=== PATIENT | female | born 1945 | race Caucasian/White ===

== ENCOUNTER 2019-08-02 11:22 | Outpatient (CLI) | payer MEDICARE, OTHER, SELFPAY ==
--- NOTE | 2019-08-02 13:54 | MM_ITS ---
WS: [id number] DIAGNOSTIC RIGHT DIGITAL MAMMOGRAM WITH CAD HISTORY: HX OF BREAST CA;LT MASTECTOMY COMPARISON: 07/05/2018, 06/16/2018 and 05/28/2017 Technique: CC, MLO and ML views. Breast composition: There are scattered areas of fibroglandular density. Benign rodlike calcificatio ns. No change in the fibroglandular pattern. MM/[place] [id number] IMPRESSION: BI-RADS: 2-Benign FOLLOW UP: 1 Year Follow-up
== END 2019-08-02 11:23 | disposition home or self-care (01) ==
PROVIDERS: Family Provider Internal Medicine; PCP Internal Medicine; Visit Provider Internal Medicine
DX: Z85.3 Personal history of malignant neoplasm of breast (principal); Z90.12 Acquired absence of left breast and nipple
CPT/HCPCS: 77065

== ENCOUNTER 2020-10-14 10:47 | Outpatient (CLI) | payer MEDICARE, OTHER, SELFPAY ==
--- NOTE | 2020-10-14 10:51 | MM_ITS ---
WS: [id number] DIAGNOSTIC RIGHT DIGITAL MAMMOGRAM WITH CAD HISTORY: HX OF BREAST CA;LT MASTECTOMY COMPARISON: 08/02/2019, 07/05/2018 and 05/28/2017 Technique: CC, MLO and ML views. Breast composition: There are scattered areas of fibroglandular density. Asymmetry central to the RI GHT nipple posteriorly measures 8 mm. This nodule has slightly increased in size since 08/02/2019. At that time we could find no corresponding abnormality. This may be posterior and inferior to the nippl e. This needs to be further evaluated. Benign rodlike calcifications are unchanged. MM/[place] [id number] IMPRESSION: BI-RADS: 0-Incomplete: Need additional imaging evaluation FOLLOW UP: Need Additional Imaging Slight increase in size of the nodule central to the RIGHT nipple since 08/02/19 20.
== END 2020-10-14 10:48 | disposition home or self-care (01) ==
LOC: RADSHAW 10:50
PROVIDERS: PCP Internal Medicine; Visit Provider Internal Medicine
DX: Z85.3 Personal history of malignant neoplasm of breast (principal); Z90.12 Acquired absence of left breast and nipple; N63.41 Unspecified lump in right breast, subareolar
CPT/HCPCS: 77065

== ENCOUNTER 2020-11-22 13:12 | Outpatient (CLI) | payer MEDICARE, OTHER, SELFPAY ==
--- NOTE | 2020-11-22 13:18 | US_ITS ---
WS: [id number] ADDITIONAL VIEWS RIGHT BREAST RIGHT BREAST ULTRASOUND, LIMITED HISTORY: INCONCLUSIVE MAMMO COMPARISON: 10/14/2020, 08/02/2019 and 07/05/2018 Compression views right CC and MLO projection. Asymmetry persists central to the RIGHT nipple measuring 7.5 mm. Nodule is posterior and just beneath the nipple line on the MLO projection. RIGHT breast ultrasound, limited. No abnormality is noted by ultrasound in the posterior RIGHT breast . US/US breast RT limited* [id number] IMPRESSION: BI-RADS: 3-Probably Benign FOLLOW-UP: 6 Month Follow-up Recommend diagnostic RIGHT mammogram follow-up in 6 months.
== END 2020-11-22 13:13 | disposition home or self-care (01) ==
LOC: RADSHAW 13:13
PROVIDERS: PCP Internal Medicine; Visit Provider Internal Medicine
DX: R92.2 Inconclusive mammogram (principal); N64.89 Other specified disorders of breast
CPT/HCPCS: 76642; 77065

== ENCOUNTER 2021-05-29 07:54 | Inpatient (IN) | payer MEDICARE, OTHER, SELFPAY ==
[2021-05-29 08:19] VITALS: BP 214/107; PULSE 119; RESP 28; TEMP 36.8; O2SAT 95; BMI 22.6
--- NOTE | 2021-05-29 08:26 | XR_ITS ---
WS: [id number] BILATERAL RIBS, MULTIPLE VIEWS WITH PA CHEST HISTORY: fall COMPARISON: None available. Lungs and mediastinum: Soft tissue 12 mm nodule is slightly lobulated in the central RIGHT lung. No a dditional nodules or pneumonia. No pneumothorax. No pulmonary contusion. Ribs: No rib fractures or bone destruction identified. XR/XR ribs BI mn 4V w CXR1V [id number] IMPRESSION: 1. No rib fractures or pneumothorax identified. 2. 12 mm soft tissue nodule central RIGHT lung. Neoplasm is not excluded. [facility] mmend follow-up chest CT with IV contrast. Chest CT can be performed on a nonur gent basis.
--- NOTE | 2021-05-29 08:28 | CT_ITS ---
WS: [id number] CT HEAD NONCONTRAST HISTORY: fall TECHNIQUE: Contiguous axial imaging performed through the brain in 2.5 mm imaging. Bone and soft tiss ue windows. Sagittal and coronal reformats reviewed. All CT scans at [facility] use at least one of these dose optimization techniques: automated exposure control; mA and/or kV adjustment per pa tient size (includes targeted exams where dose is matched to clinical indication); or iterative recon struction. DLP: 812.9 mGy.cm COMPARISON: None available. No acute intracranial hemorrhage, midline shift or mass effect. Mild atrophy and chronic microvascular ischemic disease. Infarcts in the RIGHT basal ganglia and RIGH T caudate head are chronic. Ventricles: Normal size with no hydrocephalus. Paranasal sinuses: As visualized are clear. Mastoid air cells: Well pneumatized. Calvarium and scalp: Skull is intact with no soft tissue edema or swelling. CT/CT head wo con* [id number] IMPRESSION: 1. No acute intracranial hemorrhage or edema. 2. Mild atrophy and remote lacunar infarcts in the RIGHT basal ganglia and cau date head.
--- NOTE | 2021-05-29 08:29 | ECG_ITS ---
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 Measurements Intervals [place] Rate: 103 P: 71 ME: 171 QRS: 35 QRSD: 93 T: 41 QT: 326 QTc: 428 Interpretive Statements SINUS TACHYCARDIA POSSIBLE LEFT ATRIAL ENLARGEMENT [-0.1mV P-WAVE IN V1/V2] ABNORMAL RHYTHM ECG Compared to ECG 05/29/2021 13:19:21 T-wave abnormality no longer present Electronically Signed On 05-29-2021 22:45:53 [employer] by Shira Shepard M.D. [email or web address] [id number]
--- NOTE | 2021-05-29 08:30 | ED_ITS ---
HPI - Allergic Reaction General: Chief complaint: Allergic Reaction Stated complaint: Fall, Swollen tongue Wednesday, new meds Time Seen by Provider: 05/29/21 08:20 History of Present Illness: HPI narrative: 75-year-old female with history of hypertension on lisinopril presents due to left chest wall pain and tongue swelling. States this started Wednesday. States she was seen by PCP Wednesday and was started on doxycycline prednisone Mucinex. States that following that she had a fall where she hit the left side of her chest and has had pain in that area since. Does report head trauma but no headache. Denies any neck pain. Denies any other focal pain. Denies numbness weakness or tingling. States that she has had tongue swelling since Wednesday and it is not significantly changing. Denies any rash or GI upset. Denies any syncopal episodes. States fall was mechanical and did not have a prodrome. States chest pain is achy and worse with palpation. It is not exertional or pleuritic. Does not radiate to the back. Denies lower extremity pain or swelling. Review of Systems Narrative: - CONSTITUTIONAL: Denies weight loss, fever and chills. - HEENT: Denies changes in vision and hearing. Reports tongue swelling. - RESPIRATORY: Denies SOB and cough. - CV: As above - GI: Denies abdominal pain, nausea, vomiting and diarrhea. - : Denies dysuria and urinary frequency. - MSK: Denies myalgia and joint pain. - SKIN: Denies rash and pruritus. - NEUROLOGICAL: Denies headache, weakness, numbness and syncope. - PSYCHIATRIC: Denies suicidal ideation Physical Exam Narrative: EXAM NARRATIVE: - GENERAL: Alert and oriented x 3. No acute distress. Well-nourished. - EYES: EOMI. Anicteric. - HENT: Atraumatic, no C-spine tenderness. Moist mucous membranes. No scleral icterus. No cervical lymphadenopathy. Minor tongue swelling but no muffled voice or stridor. No soft tissue swelling of the lips. No wheezing. - LUNGS: Clear to auscultation bilaterally. No accessory muscle use. Equal lung sounds bilaterally. No respiratory distress. - CARDIOVASCULAR: Regular tachycardia. No murmur. No JVD. Tenderness to palpation to left lateral chest wall. - ABDOMEN: Soft, non-tender and non-distended. Negative CVA tenderness bilaterally, no rebound or guarding, negative Taveras sign. No palpable masses. - EXTREMITIES: No edema. Non-tender. - SKIN: No rashes or lesions. Warm. - NEUROLOGIC: No meningismus or focal neurological deficits. CN II-XII grossly intact. - PSYCHIATRIC: Cooperative. Appropriate mood and affect. Course Vital Signs: Vital signs: Vital Signs Temperature 98.3 F 05/29/21 08:19 Pulse Rate 122 H 05/29/21 09:52 Respiratory Rate 28 H 05/29/21 08:19 Blood Pressure 174/82 05/29/21 09:52 Pulse Oximetry 95 05/29/21 09:52 MDM - Allergic Reaction MDM Narrative: Medical decision making narrative: 75-year-old female presents due to left chest wall pain. States she had a mechanical fall did not syncopized. Reports that she only had pain after hitting the left chest did not have any pain prior to the fall or is the cause of the fall. EKG and troponin do not reveal any sign of acute ischemia or acute abnormality. There is sinus tachycardia but she is not short of breath. Initial high-sensitivity troponin very mildly elevated to the mid 20s but repeat is not significantly changing. Does have KAIA to 1.4. In addition patient also complains of minor tongue swelling. She is on lisinopril. There is no stridor or signs of airway compromise but not believe intubation is required at this time. Prednisone and Benadryl provided. However I do believe she requires a period of observation due to concern for progression of angioedema. However given that symptoms have been present since Wednesday probability of rapid progression significantly lower at this point but lisinopril should be stopped. In addition patient has white count elevation to 17 but no focal infectious signs. She is also been on steroids. X-ray does not reveal pneumothorax or consolidation but does reveal a pulmonary mass for which CT follow-up may be required. Remainder of lab work and imaging reviewed. Discussed with hospitalist and they agreed patient would benefit from admission. Patient admitted in stable condition. Further evaluation management per hospitalist team. Lab Data: Labs: Lab Results 05/29/21 05/29/21 05/29/21 09:05 09:05 09:05 WBC 17.5 10^3/uL H 10 ^3/uL (4.0-10.0) RBC 4.87 10^6/uL 10^6 /uL (4.1-5.3) Hgb 14.9 g/dL g/dL (11.5-15.3) Hct 43.8 % % (37.0-47.0) MCV 89.9 fl fl (81-99) MCH 30.6 pg pg (28.0-34.0) MCHC 34.0 g/dL g/dL (30.0-36.0) RDW 12.4 % % (12.1-15.1) Plt Count 306 10^3/cmm 10^3 /cmm (130-400) MPV 8.8 fL fL (7.4-10.4) Neut % (Auto) 85.7 % % Lymph % (Auto) 5.4 % % Garden % (Auto) 7.5 % % Eos % (Auto) 0.1 % % Baso % (Auto) 0.2 % % Neut # (Auto) 15.03 10^3/uL H 1 0^3/uL (1.8-7.7) Lymph # (Auto) 1.0 10^3/uL 10^3/ uL (0.8-4.8) Garden # (Auto) 1.3 10^3/uL H 10^ 3/uL (0.2-0.9) Eos # (Auto) 0.0 10^3/uL 10^3/ uL (0.0-0.8) Baso # (Auto) 0.0 10^3/uL 10^3/ uL (0.0-0.1) Nucleated RBC % (a uto) 0 % % Nucleated RBCs # 0.0 /100WBC /100W BC PT 13.50 SECONDS SEC ONDS (12.1-14.9) INR 1.00 (0.8-1.2) APTT 33.2 SECONDS SECO NDS (23.9-36.7) Sodium 132 mmol/L L mmol /L (136-145) Potassium 4.7 mmol/L mmol/L (3.5-5.1) Chloride 94 mmol/L L mmol/ L (98-107) Carbon Dioxide 23 mmol/L mmol/L (22-29) Anion Gap 19.7 H (5-19) BUN 36 mg/dL H mg/dL (8-23) Creatinine 1.4 mg/dL H mg/dL (0.5-0.9) GFR Calculation Not Reportable Glucose 184 mg/dL H mg/dL (65-115) Calculated Osmolal ity 287 mOsm/kg mOsm/ kg (285-295) Calcium 10.1 mg/dL mg/dL (8.5-10.5) Total Bilirubin 0.3 mg/dL mg/dL (0.15-1.2) AST 19 U/L U/L (0-32) ALT 21 U/L U/L (0-33) Alkaline Phosphata se 103 IU/L IU/L (35-105) Troponin T Baselin e Troponin T 120 Min francisco javier Delta Troponin T NT-Pro-B Natriuret Pep 683 pg/mL H pg/mL (0-125) Total Protein 8.0 g/dL g/dL (6.6-8.7) Albumin 4.7 g/dL g/dL (3.5-5.2) Globulin 3.3 g/dL g/dL (1.3-4.6) Lipase 108 U/L H U/L (13-60) Urine Color Urine Appearance Urine pH Ur Specific Gravit y Urine Protein Urine Glucose (UA) Urine Ketones Urine Blood Urine Nitrate Urine Bilirubin Urine Urobilinogen Ur Leukocyte Dolly ase Urine RBC Urine WBC Ur Squamous Epith Cells Amorphous Sediment Urine Bacteria SARS-CoV-2 Ag (Rap id) 05/29/21 05/29/21 05/29/21 09:05 09:20 09:20 WBC RBC Hgb Hct MCV MCH MCHC RDW Plt Count MPV Neut % (Auto) Lymph % (Auto) Garden % (Auto) Eos % (Auto) Baso % (Auto) Neut # (Auto) Lymph # (Auto) Garden # (Auto) Eos # (Auto) Baso # (Auto) Nucleated RBC % (a uto) Nucleated RBCs # PT INR APTT Sodium Potassium Chloride Carbon Dioxide Anion Gap BUN Creatinine GFR Calculation Glucose Calculated Osmolal ity Calcium Total Bilirubin AST ALT Alkaline Phosphata se Troponin T Baselin e 25 ng/L H ng/L (0-10) Troponin T 120 Min francisco javier Delta Troponin T NT-Pro-B Natriuret Pep Total Protein Albumin Globulin Lipase Urine Color Yellow (Yellow) Urine Appearance Clear (CLEAR) Urine pH 5 (5-7) Ur Specific Gravit y 1.020 (1.005-1.030) Urine Protein Neg (Negative) Urine Glucose (UA) 1+ H (Normal) Urine Ketones Negative (Negative) Urine Blood Trace H (Negative) Urine Nitrate Negative (Negative) Urine Bilirubin Neg (Negative) Urine Urobilinogen Norm mg/dL mg/dL (Negative) Ur Leukocyte Dolly ase Negative (Negative) Urine RBC 0-4 /hpf H /hpf (0-2) Urine WBC Rare /hpf /hpf (0-5) Ur Squamous Epith Cells 5-10 /hpf H /hpf (0-5) Amorphous Sediment Not Reportable Urine Bacteria Trace /hpf /hpf (NONE) SARS-CoV-2 Ag (Rap id) Negative (Negative) 05/29/21 10:40 WBC RBC Hgb Hct MCV MCH MCHC RDW Plt Count MPV Neut % (Auto) Lymph % (Auto) Garden % (Auto) Eos % (Auto) Baso % (Auto) Neut # (Auto) Lymph # (Auto) Garden # (Auto) Eos # (Auto) Baso # (Auto) Nucleated RBC % (a uto) Nucleated RBCs # PT INR APTT Sodium Potassium Chloride Carbon Dioxide Anion Gap BUN Creatinine GFR Calculation Glucose Calculated Osmolal ity Calcium Total Bilirubin AST ALT Alkaline Phosphata se Troponin T Baselin e Troponin T 120 Min francisco javier 27.91 ng/L H ng/L (0-10) Delta Troponin T 2.91 ABS# ABS# (0-10) NT-Pro-B Natriuret Pep Total Protein Albumin Globulin Lipase Urine Color Urine Appearance Urine pH Ur Specific Gravit y Urine Protein Urine Glucose (UA) Urine Ketones Urine Blood Urine Nitrate Urine Bilirubin Urine Urobilinogen Ur Leukocyte Dolly ase Urine RBC Urine WBC Ur Squamous Epith Cells Amorphous Sediment Urine Bacteria SARS-CoV-2 Ag (Rap id) EKG Data^: EKG 1: Other EKG comments: Sinus tachycardia, rate of 112, no sign of acute ischemia or other acute abnormality. Poor tracing. Discharge Plan Discharge Prescriptions: No Action aspirin 325 mg Tablet 325 mg PO BID PRN (Reason: Pain) RF: 0 prednisone 20 mg tablet 20 mg PO BID RF: 0 amlodipine 5 mg tablet 5 mg PO QAM RF: 0 montelukast 10 mg tablet 10 mg PO DAILY RF: 0 lisinopril 40 mg tablet 40 mg PO QAM RF: 0 doxycycline hyclate 100 mg tablet 100 mg PO BID RF: 0 Mucinex 600 mg tablet extended release 12hr 600 mg PO BID PRN (Reason: Congestion) RF: 0 Coding Level of Care Code ED Repairer [employer] for Gerardo Marti
[2021-05-29 09:19] LABS: Basophils % 0.2 %; Eosinophils % 0.1 %; Hematocrit 43.8 % (37.0-47.0); Hemoglobin 14.9 g/dL (11.5-15.3); Lymphocytes % 5.4 %; Mean Corpuscular Hemoglobin 30.6 pg (28.0-34.0); Mean Corpuscular Volume 89.9 fl (81-99); Mean Platelet Volume 8.8 fL (7.4-10.4); Monocytes # 1.3 10^3/uL (0.2-0.9); Monocytes % 7.5 %; Neutrophils # 15.03 10^3/uL (1.8-7.7); Neutrophils % 85.7 %; Nucleated Red Blood Cells % 0 %; Platelet Count 306 10^3/cmm (130-400); Red Blood Count 4.87 10^6/uL (4.1-5.3); Red Cell Distribution Width 12.4 % (12.1-15.1); White Blood Count 17.5 10^3/uL (4.0-10.0)
[2021-05-29 09:41] LABS: Urine Appearance Clear (CLEAR); Urine Color Yellow (Yellow); pH Urine 5 (5-7)
[2021-05-29 09:42] LABS: Add Urine Culture? No; Bacteria Urine TRACE /hpf; Bilirubin Urine Neg (Negative); Blood Urine Trace (Negative); Glucose Urine UA 1+ (Normal); Ketones Urine Negative (Negative); Leukocyte Esterase Urine Negative (Negative); Nitrate Urine Negative (Negative); Protein Urine Neg (Negative); RBC Urine 0-4 /hpf (0-2); Urobilinogen Urine Norm (Negative); WBC Urine RARE /hpf (0-5)
[2021-05-29 09:44] LABS: Alanine Aminotransferase 21 U/L (0-33); Albumin Level 4.7 g/dL (3.5-5.2); Alkaline Phosphatase 103 IU/L (35-105); Anion Gap 19.7 (5-19); Aspartate Amino Transferase 19 U/L (0-32); Blood Urea Nitrogen 36 mg/dL (8-23); Calcium 10.1 mg/dL (8.5-10.5); Carbon Dioxide 23 mmol/L (22-29); Chloride 94 mmol/L (98-107); Globulin 3.3 g/dL (1.3-4.6); Glucose 184 mg/dL (65-115); Lipase 108 U/L (13-60); Osmolality Calculated 287 mOsm/kg (285-295); Potassium 4.7 mmol/L (3.5-5.1); Sodium 132 mmol/L (136-145); Total Bilirubin 0.3 mg/dL (0.15-1.2)
[2021-05-29 09:45] LABS: Troponin(5th) Baseline 25 ng/L (0-10)
[2021-05-29 09:52] VITALS: BP 174/82; PULSE 122; O2SAT 95
[2021-05-29 09:57] LABS: SARS Covid-2 Antigen Negative (Negative)
[2021-05-29 10:10] LABS: NT Pro B Type Natriuretic Pept 683 pg/mL (0-125)
[2021-05-29 10:14] LABS: Partial Thromboplastin Time 33.2 SECONDS (23.9-36.7)
[2021-05-29 11:04] LABS: Troponin 5 2HR 27.91 ng/L (0-10); Troponin 5 2HR Delta 2.91 ABS# (0-10)
[2021-05-29] MEDS: labetalol 5 mg/mL SDV 20mL 10 MG IVP (12:12)
[2021-05-29] MEDS: sodium chloride 0.9% 500 ML 999 ML IV (12:17)
--- NOTE | 2021-05-29 12:47 | CTR_ITS ---
PROCEDURE INFORMATION: Exam: CTA Chest With Contrast Exam date and time: 05/29/2021 12:47 PM Age: 75 years old Clinical indication: Chest wall pain; Additional info: Dyspnea, tachy, pulmonary nodule TECHNIQUE: Imaging protocol: Computed tomographic angiography of the chest with contrast. 3D rendering (Not supervised by radiologist): MIP and/or 3D reconstructed images were created by the technologist. Radiation optimization: All CT scans at this facility use at least one of these dose optimization techniques: automated exposure control; mA and/or kV adjustment per patient size (includes targeted exams where dose is matched to clinical indication); or iterative reconstruction. Contrast material: VISI; Contrast volume: 61 ml; Contrast route: INTRAVENOUS (IV); COMPARISON: CR XR ribs BI mn 4V w CXR1V [id number] 05/29/2021 9:43 AM RADIATION DOSE METRICS: Total DLP (mGy-cm): 517.46 FINDINGS: Pulmonary arteries: No pulmonary artery embolism identified. Aorta: Ascending aortic ectasia measuring 4.0 cm. Moderate aortic arch, branch, and descending thoracic aortic atherosclerotic calcification. Severe infrarenal abdominal aortic stenosis. Great vessels off aortic arch: Severe stenosis proximal left subclavian artery. Other arteries: Occluded left renal artery. Severe stenosis right renal artery origin. Thyroid: The bilateral thyroid lobes are unremarkable. Lungs: A mildly spiculated lobulated 19.6 mm noncalcified pulmonary nodule is noted in the lateral posterior segment of the right upper lobe (LOC -96.625). Right lower lobe calcified pulmonary parenchymal granuloma. Right middle lobe medial segment pulmonary subsegmental atelectasis/scarring. Superior segment lingular pulmonary subsegmental atelectasis/scarring. Pleural spaces: No pneumothorax. No pleural effusion. Heart: Mild aortic valvular calcification is present. LAD, LCx and RCA calcified coronary atherosclerosis. Lymph nodes: Right hilar granulomatous sean calcifications are present. Kidneys and ureters: Severe left renal atrophy. Bones/joints: Chronic healed lateral left 7th rib fracture. Mild lower thoracic spine vertebral body marginal osteophytes. Soft tissues: Previous left simple mastectomy. Right breast benign macro calcifications. CT/CT angio chest PE protcl [id number] IMPRESSION: 1. No pulmonary artery embolism identified. 2. No thoracic aortic dissection identified. 3. Mild ascending aortic ectasia. 4. Noncalcified right upper lobe pulmonary nodule. Pulmonary neoplasia not excluded. Comparison with prior studies, if available, recommended. PET/CT or percutaneous needle biopsy recommended. (modified from Bola et al., Fleischner Society, 2017). 5. Coronary atherosclerosis. 6. Severe stenosis proximal left subclavian artery. 7. Severe left renal atrophy. 8. Occluded left renal artery. 9. Severe infrarenal abdominal aortic stenosis. 10. Severe stenosis right renal artery origin. Radiation Dose CTDIVOL = (mGy): DLP = 517.46 (mGy-cm)
--- NOTE | 2021-05-29 12:48 | P.HP_ITS ---
Providers/Chief Complaint Primary Care Provider: Marty Sanchez DO Chief Complaint: Fall, Swollen tongue Wednesday, new meds History of Present Illness Shania Tovar is a 75 year old female who presented to the hospital with complaints of tongue swelling. She states this started on Wednesday. She had gone to her primary care provider and got diagnosed with what sounds like a COPD exacerbation as well and was started on doxycycline prednisone and Mucinex. Since that time she has had 2 separate falls. First fall was when she missed stepped on a ladder and the second 1 she was setting on a bench and fell off. She is not for sure if she lost consciousness. She reports she has some weakness of her left upper extremity, which is chronic secondary to breast surgery in the past and unchanged. She has had some difficulty swallowing to what she attributes as tongue swelling. She reports both swallowing difficulty, and tongue swelling seem to be improving. She denies any other new medications. She reports that she has had no fever, cough or exposure to Covid. She is not vaccinated. She has had no vomiting. She has had a little bit of nausea, and headache at times but nothing severe. She reports her chest discomfort, is when she takes a big breath and she attributes that to falling and injuring her left lower chest although no bruises present. She reports she chronically has shortness of breath, and sometimes wheezes. She has a long history of tobacco dependency and gets winded with only minimal exertion. Review of Systems General: Reports: 10 or more systems reviewed and unremarkable except in HPI and below Const: Denies: fever(s) Eyes: Denies: change in vision ENMT: Denies: throat pain Card: Reports: chest pain Resp: Reports: dyspnea GI: Reports: nausea; Denies: abdominal pain or vomiting : Denies: flank pain Musc: Denies: neck pain Skin/Breast: Denies: rash Neuro: Reports: headache(s) Psych: Reports: anxiety; Denies: depression Endo: Denies: polyuria Wilian/Lymph: Denies: easy bruising All/Imm: Denies: urticaria Medications/Allergies Home Medications Medication Instructions Recorded Confirmed Last Taken Type amlodipine 5 mg PO QAM 05/29/21 05/29/21 05/29/21 06:00 History aspirin 325 mg PO BID PRN 05/29/21 05/29/21 Unknown History doxycycline hyclate 100 mg PO BID 05/29/21 05/29/21 05/29/21 06:00 History guaifenesin [Mucinex] 600 mg PO BID PRN 05/29/21 05/29/21 05/29/21 06:00 History lisinopril 40 mg PO QAM 05/29/21 05/29/21 05/29/21 06:00 History montelukast 10 mg PO DAILY 05/29/21 05/29/21 Unknown History prednisone 20 mg PO BID 05/29/21 05/29/21 05/29/21 06:00 History Allergies Allergy/AdvReac Type Severity Reaction Status Date / Time No Known Allergies Allergy Verified 05/29/21 08:57 PFSH Acute PFSH: Medical History (Updated 05/29/21 @ 13:25 by Javy Jackson MD) COPD (chronic obstructive pulmonary disease) CVA (cerebral vascular accident) Lacunar, 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 History of breast cancer Hypertension Tobacco dependency Surgical History (Updated 05/29/21 @ 12:53 by Javy Jackson MD) History of appendectomy History of cholecystectomy History of mastectomy Family History (Updated 05/29/21 @ 12:53 by Javy Jackson MD) Other CAD (coronary artery disease) Social History (Updated 05/29/21 @ 12:53 by Javy Jackson MD) Smoking and tobacco status: current every day smoker Alcohol intake: never Vitals/I&O/Wt Last Vital Signs Temp 98.3 F 05/29/21 08:19 Pulse 122 H 05/29/21 09:52 Resp 28 H 05/29/21 08:19 BP 174/82 05/29/21 09:52 Pulse Ox 95 05/29/21 09:52 Weight last 48 hrs Weight 56.245 kg Physical Exam Narrative: EXAM NARRATIVE: General exam demonstrates an anxious appearing female, in no distress HEENT: Pupils equally round. Oropharynx clear. Tongue is midline. Slight left facial droop. Neck is supple no lymphadenopathy or thyromegaly Cardiovascular tachycardic, no murmur. Chest demonstrates no bruise Lungs clear but with diminished breath sounds bilaterally Abdomen is soft, positive bowel sounds. No obvious organomegaly exam deferred Extremities no cyanosis clubbing or edema, cap refill brisk Skin no rash Neuro no obvious other focal deficits although slight left facial droop. Family is not sure if this is old or new but they noticed no significant abnormalities in speech or facial expressions. She is able to do a bedside swallow without difficulty. Data : 05/29/21 09:05 05/29/21 09:05 Other data: LFTs are normal Troponin XX 5 with repeat of 27 BNP 683 Lipase 108 Urinalysis 0-4 reds, rare white blood cells, negative for protein Rapid Covid negative Head CT demonstrates some atrophy, remote lacunar infarcts right basal ganglia and caudate head Chest x-ray no fractures. 12 mm soft tissue density right lung EKG demonstrates sinus tachycardia with a rate of around 110, normal axis, no acute ST or T wave changes. Biphasic P wave in V1 is noted. A&P Assessment and plan (1) Tongue swelling: This could represent angioedema which is improving. Continue prednisone, and decrease to 20 mg a day. Note that she received 125 mg of Solu-Medrol in the emergency department Loratadine 10 mg daily CRP, sed rate, complement level, tryptase Status: Acute (2) COPD exacerbation: Continue prednisone DuoNeb every 6 hours Continue doxycycline Status: Acute (3) Facial asymmetry: Unknown if this is old Doubt acute CVA, but check echocardiogram, carotid duplex Continue aspirin Check lipid profile Status: Acute (4) Acute kidney injury: Hydration Recheck BMP tomorrow Status: Acute (5) Leukocytosis: Secondary to effect of steroids Status: Acute (6) Lung nodule: CTA will be obtained which will delineate this further. Note that she has had falls, is tachycardic, and short of breath. Status: Acute (7) Falls: History of falls without injury. Pulmonary embolism will need to be ruled out. Note that she has significant tachycardia and tachypnea associated with shortness of breath. Status: Acute Additional A&P Information Diabetes mellitus type 2. Sliding scale insulin Hypertension, continue amlodipine. Hold DAVID inhibitor Tobacco dependency, encourage abstinence Full code Lovenox for DVT prophylaxis Attestations Medical Necessity Statement*: Will need less than 2 midnight stay for evaluation of tongue swelling, possible angioedema Time Spent in Patient Care: Greater than 35 minutes Coding Level of Care Code Acute Industrial Waste Inspector for g Fwd Diagnoses Tongue swelling R22.0 COPD exacerbation J44.1 Facial asymmetry Q67.0 Acute kidney injury N17.9 Leukocytosis D72.829 Lung nodule R91.1 Falls W19.XXXA
[2021-05-29] MEDS: iodixanol 320 mg/mL 100mL Btl IV (13:47)
[2021-05-29 14:01] VITALS: PULSE 103; RESP 23; O2SAT 95
[2021-05-29 14:11] VITALS: BMI 22.6
[2021-05-29 14:13] LABS: C Reactive Protein 3.2 mg/L (0.0-4.9)
--- NOTE | 2021-05-29 14:29 | ECG_ITS ---
[facility] Test Date: 2021-05-29 Pat Name: Shania Tovar Department: Room: Gender: Female Support Team Member: : 1945 Requested By: Brett Arnold Order Number: [id number] Lory MD: Shira Shepard M.D. Measurements Intervals Wanda Rate: 101 P: 66 VA: 158 QRS: 33 QRSD: 96 T: 19 QT: 338 QTc: 439 Interpretive Statements SINUS TACHYCARDIA POSSIBLE LEFT ATRIAL ENLARGEMENT [-0.1mV P-WAVE IN V1/V2] NONSPECIFIC T-WAVE ABNORMALITY ABNORMAL RHYTHM ECG Heavy baseline artifact, need to repeat the study No previous ECG available for comparison Electronically Signed On 05-29-2021 22:56:33 HOT DIE PRESS OPERATOR by Shira Shepard M.D. [id number]
[2021-05-29] MEDS: sodium chloride 0.9% 1,000 ML 75 ML IV (15:09)
[2021-05-29] MEDS: loratadine 10 mg Tablet PO (15:10)
[2021-05-29 15:47] LABS: Troponin 5 6HR 27.17 ng/L (0-10); Troponin 5 6HR Delta 2.17 ng/L (0-12)
[2021-05-29 16:27] LABS: Glucose Point of Care 149 mg/dL (70-110)
[2021-05-29] MEDS: doxycycline 100 mg Tablet PO (17:32)
[2021-05-29] MEDS: insulin lispro 100 unit/1 mL SUBCUT (17:32)
[2021-05-29 20:00] VITALS: BP 191/82; PULSE 100; RESP 19; TEMP 37.2; O2SAT 92
[2021-05-29 21:20] LABS: Glucose Point of Care 123 mg/dL (70-110)
[2021-05-29 22:00] VITALS: PULSE 92
[2021-05-30] VITALS (13 sets, daily range): BP systolic 108–182; BP diastolic 62–84; PULSE 80–110; RESP 16–18; TEMP 36.5–36.9; O2SAT 90–96
--- NOTE | 2021-05-30 06:00 | USCV_ITS ---
Shania Tovar Age: 75 Gender: F : 1945 Exam Date: 05/30/2021 06:25 Ordering Phys: Javy Jackson MD Technologist: Kristy Torres Exam Location: [facility] [place] Indication: LT SIDE OF FACE SAGGING Risk Factors: Previous Vascular Surgery: Right Brachial BP: / Left Brachial BP: / Right Left Velocity (cm/s) Spectral Plaque Velocity (cm/s) Spectral Plaque Syst/Diast Broadening Syst/Diast Broadening 88.20/ 23.20 Prox CCA 65.80 / 17.90 Hetro 70.30/ 20.40 Hetro Mid CCA 66.90 / 14.20 Hetro 73.60/ 13.10 Hetro Distal CCA 66.00 / 13.70 Hetro 75.30/ 16.30 Hetro Prox ICA 115.50/ 20.80 Hetro 75.30/ 13.50 Mid ICA 76.50 / 22.90 Hetro 85.90/ 22.00 Distal ICA 110.30/ 39.30 Hetro 145.90 Hetro ECA 302.00 Hetro 0.97 ICA/CCA 1.62 Antegrade Vertebral Antegrade 68.20/ 16.30 cm/s 45.40/ 15.60 cm/s Bi Subclavian [place] 168.9 155.3 0 0 CONCLUSIONS Right ICA stenosis <50%. Moderate calcified atheromatous plaque right carotid bulb/ICA. Left ICA stenosis <50%. Moderate calcified atheromatous plaque left carotid bulb/ICA. Calcified prominent plaque in both CCA's. Normal antegrade Doppler flow noted in the right vertebral artery. Normal antegrade Doppler flow noted in the left vertebral artery. Wilfredo Paredes MD (Electronically Signed) Final Date: 30 May 2021 14:44 S
--- NOTE | 2021-05-30 06:00 | USCV_ITS ---
Guy Shania Age: 75 Gender: F : 1945 Exam Date: 05/30/2021 06:10 Ordering Phys: Javy Jackson MD Technologist: Kristy Torres [place]am [place] [facility] [place] Indication: SOB AND CVA BP: 178 / 84 HR: 98 Rhythm: Sinus Technical Quality: Adequate MEASUREMENTS (Male / Female) Normal Values 2D ECHO LV Diastolic Diameter PLAX 2.2 cm 4.2 - 5.9 / 3.9 - 5.3 cm LV Systolic Diameter PLAX 2.2 cm LV Chamber Size 3.2 cm IVS Diastolic Thickness 1.2 cm 0.6 - 1.0 / 0.6 - 0.9 cm IVS Systolic Thickness 1.7 cm LVPW Diastolic Thickness 1.4 cm 0.6 - 1.0 / 0.6 - 0.9 cm LVPW Systolic Thickness 1.3 cm RV Chamber Size 2.6 cm LVOT Diameter 2.0 cm LV Ejection Fraction 2D Teich 4.3 % LV Ejection Fraction MOD 2C 57.8 % LV Ejection Fraction 2C AL 58.4 % LA Diameter 3.1 cm LA Width 2.7 cm LA Height 4.2 cm RA Width 3.1 cm RA Height 3.7 cm Aorta at Sinotubular Diameter 2.6 cm M-MODE LV Diastolic Diameter MM 2.6 cm 4.2 - 5.9 / 3.9 - 5.3 cm LV Systolic Diameter MM 2.0 cm LV Ejection Fraction MM Teich 46.0 % IVS Diastolic Thickness MM 1.3 cm 0.6 - 1.0 / 0.6 - 0.9 cm IVS Systolic Thickness MM 1.5 cm LVPW Diastolic Thickness MM 1.6 cm 0.6 - 1.0 / 0.6 - 0.9 cm LVPW Systolic Thickness MM 1.8 cm Aortic Annulus Diameter 3.2 cm LA Ao Ratio MM 1.1 MV E Point Septal Separation 0.6 cm DOPPLER AV Peak Velocity 142.0 cm/s LVOT Peak Velocity 95.0 cm/s AV Area Cont Eq vti 2.3 cm squared AV Area Cont Eq pk 2.1 cm squared MV Area PHT 5.0 cm squared Mitral E to A Ratio 94.4 MV E' Velocity 68.5 cm/s Mitral E to MV E' Ratio 24.9 Mitral E to LV E' Lateral Ratio 25.4 Mitral E to LV E' Septal Ratio 24.5 TR Peak Velocity 237.8 cm/s TR Peak Gradient 22.6 mmHg TR Mean Velocity 161.1 cm/s TR Mean Gradient 12.7 mmHg TR Velocity Time Integral 64.3 cm TV Peak E Velocity 67.0 cm/s Right Atrial Pressure 3.0 mmHg Pulmonary Artery Systolic Pressu 25.6 mmHg PV Peak Velocity 77.0 cm/s RV Acceleration Time 0.2 s RV Ejection Time 0.4 s RV AcT/ET 0.5 FINDINGS Left Ventricle Normal left ventricular cavity size. Moderate decreased left ventricular systolic function. Left ventricular ejection fraction is estimated at 40 %. There is possible hypokinesis of entire septal and apical ferrari. Grade I diastolic dysfunction (abnormal relaxation filling pattern), normal to mildly elevated filling pressures. Right Ventricle Normal right ventricular size and systolic function. Right Atrium Normal right atrial size. Left Atrium Left atrium not well visualized. Mitral Valve Mildly thickened mitral valve. No mitral valve stenosis. Aortic Valve Aortic valve not well visualized. No aortic valve stenosis. No aortic valve regurgitation. Tricuspid Valve Structurally normal tricuspid valve. Trace tricuspid valve regurgitation. Pulmonic Valve Pulmonic valve not well visualized. Pericardium No pericardial or pleural effusion. Echo free space anterior to the right ventricle likely represents a fat pad. Aorta Aorta not well visualized. CONCLUSIONS 1. This is a technically difficult study . 2. Normal left ventricular cavity size. Moderate decreased left ventricular systolic function. Left ventricular ejection fraction is estimated at 40 %. There is possible hypokinesis of entire septal and apical ferrari. Grade I diastolic dysfunction (abnormal relaxation filling pattern), normal to mildly elevated filling pressures. 3. Ultrasound enhancing agent is recommended for complete evaluation. Jami Tavares MD (Electronically Signed) Final Date: 30 May 2021 14:21 S
[2021-05-30] MEDS: sodium chloride 0.9% 1,000 ML 75 ML IV (06:50)
[2021-05-30] MEDS: amlodipine 5 mg Tablet PO ×2 (06:50→09:20)
[2021-05-30 07:52] LABS: Glucose Point of Care 133 mg/dL (70-110)
[2021-05-30] MEDS: ipratropium-albuterol 3 mL Neb INHALATION ×4 (08:58→23:44)
[2021-05-30] MEDS: metoprolol tartrate 25 mg Tablet 12.5 MG PO ×2 (09:19→21:53)
[2021-05-30] MEDS: HYDROcodone-acetaminophen 5-325 mg Tablet 2 TAB PO ×2 (09:19→17:04)
[2021-05-30] MEDS: doxycycline 100 mg Tablet PO ×2 (09:19→17:03)
[2021-05-30] MEDS: aspirin 325 mg EC Tablet PO (09:19)
[2021-05-30] MEDS: loratadine 10 mg Tablet PO (09:20)
[2021-05-30] MEDS: predniSONE 20 mg Tablet PO (09:20)
[2021-05-30 09:43] LABS: Basophils % 0.2 %; Eosinophils # 0.1 10^3/uL (0.0-0.8); Eosinophils % 0.5 %; Hematocrit 43.4 % (37.0-47.0); Hemoglobin 14.4 g/dL (11.5-15.3); Lymphocytes # 1.6 10^3/uL (0.8-4.8); Lymphocytes % 16.6 %; Mean Corpuscular HGB Conc 33.2 g/dL (30.0-36.0); Mean Corpuscular Hemoglobin 29.9 pg (28.0-34.0); Mean Corpuscular Volume 90.2 fl (81-99); Mean Platelet Volume 8.8 fL (7.4-10.4); Monocytes # 0.9 10^3/uL (0.2-0.9); Monocytes % 9.6 %; Neutrophils # 7.14 10^3/uL (1.8-7.7); Neutrophils % 72.5 %; Nucleated Red Blood Cells % 0 %; Platelet Count 269 10^3/cmm (130-400); Red Blood Count 4.81 10^6/uL (4.1-5.3); Red Cell Distribution Width 12.7 % (12.1-15.1); White Blood Count 9.8 10^3/uL (4.0-10.0)
[2021-05-30 10:09] LABS: Alanine Aminotransferase 26 U/L (0-33); Alkaline Phosphatase 90 IU/L (35-105); Anion Gap 16.2 (5-19); Aspartate Amino Transferase 23 U/L (0-32); Blood Urea Nitrogen 37 mg/dL (8-23); Calcium 9.5 mg/dL (8.5-10.5); Carbon Dioxide 21 mmol/L (22-29); Chloride 97 mmol/L (98-107); Cholesterol 150 mg/dL (0-200); Globulin 3.4 g/dL (1.3-4.6); Glucose 124 mg/dL (65-115); HDL Cholesterol 75 mg/dL (60-100); LDL Cholesterol Calculated 53 mg/dL (50-129); LDL HDL Ratio 0.71 RATIO (0.00-3.22); Osmolality Calculated 280 mOsm/kg (285-295); Potassium 4.2 mmol/L (3.5-5.1); Sodium 130 mmol/L (136-145); Thyroid Stimulating Hormone 2.65 uIU/mL (0.27-4.20); Total Bilirubin 0.5 mg/dL (0.15-1.2); Total Protein 7.4 g/dL (6.6-8.7); Triglycerides 110 mg/dL (0-150)
[2021-05-30 10:16] LABS: Creatinine Clr Calc Pharmacy 37.2286
[2021-05-30 11:10] LABS: Glucose Point of Care 168 mg/dL (70-110)
--- NOTE | 2021-05-30 12:00 | MR_ITS ---
WS: [id number] MRI HEAD WITHOUT CONTRAST TECHNIQUE: Sagittal T1, T2 axial, T2 axial FLAIR, axial and coronal T1 images, axial susceptibility w eighted imaging, axial diffusion weighted images, and coronal T2 images were obtained. CLINICAL INFORMATION: CVA COMPARISON: CT May 29, 2021 FINDINGS: Patchy restricted diffusion within the right graham radiata extending to the right basal ganglia cons istent with acute ischemia. Largest area of ischemia measures 1.2 x 0.5 CCM. Mild associated edema. N o significant mass effect or midline shift. No other foci of restricted diffusion. Moderate small vessel changes. Moderate parenchymal volume loss. Small vessel changes in the doc. No rmal posterior fossa. Normal vascular flow voids at the skull base. No extra-axial fluid collections. Paranasal sinuses and mastoid air cells are well aerated. No hemosiderin on the susceptibly weighted images. Normal optic chiasm and pituitary infundibulum. Moderate symmetric atrophy temporal lobes an d hippocampal formations. MR/MR head wo con* [id number] IMPRESSION: 1. Patchy restricted diffusion within the right graham radiata extending into the basal ganglia consistent with acute ischemia. Largest focus measures 1.2 x 0.5 CCM. Mild associated edema. 2. No significant mass effect or midline shift. 3. Moderate small vessel changes with moderate parenchymal volume loss. Small vessel changes in the doc. 4. No other acute findings. Notified Javy Jackson MD at 05/30/2021 2:26 PM.
[2021-05-30] MEDS: insulin lispro 100 unit/1 mL SUBCUT ×3 (13:05→21:54)
--- NOTE | 2021-05-30 14:11 | PC.CHAP ---
Pastoral Care Encounter/Spiritual Assessment Type of Contact [] Declined clearing inspector visit [] Patient/Family/Request visit [] Outpatient visit [] Follow-up visit [] Physician referral [] Code/Alert [] Routine visit [] Staff referral [] Actively dying [] Patient sleeping [] Family support [] [] Out of room [] Palliative care [] [xx] Receiving care in room [] Pre-surgical visit [] Trauma [] Long length of stay [] ICU visit [] Other: Relational/Emotional Strength [] Patient feels connected with others/family/visitors/staff [] Distress [] Loneliness/isolation [] Abandonment Spirituality of Patient [] Person of Milagros [] Attends Episcopal of their Milagros [] Believes in Prayer [] Reads Bible or Restoration materials [] There are Spiritual issues to be addressed Supply Chain Business Analyst Interventions [] Prayer [] Active listening [] Non-anxious presence [] Spiritual/emotional support [] Crisis/trauma care [] Spiritual counseling [] Bereavement support [] Provided bereavement packet [] Provided Bible/devotional materials [] Provided toy/stuffed animal, coloring book to patient or family member [] Provided Communion [] Anointing/Epping [] Salvation [] Completed spiritual assessment [] Other: Impact on Illness or Injury [] Angry [] Fearful [] Anxious [] Often cries [] Exhaustion [] Unable to work [] Unable to attend yazidism [] Unable to walk/stand [] Unable to read [] Unable to drive [] Unable to eat/drink [] Unable to sleep [] Unable to be with family [] Patient intubated [] Other: Summary Therapist was working with patient. Follow up later. Time spent with patient
--- NOTE | 2021-05-30 15:02 | PM.PN ---
Subjective Subjective: Interval history: Shania was little short of breath this morning. She now feels better. I discontinued her fluids after seen her earlier. She still felt like she had some swallowing problems, but did not feel like her tongue was swollen this morning. No chest discomfort. Medications: Reviewed: Yes Vitals/I&O/Wt Last Vital Signs Temp 97.7 F 05/30/21 11:20 Pulse 81 05/30/21 11:20 Resp 16 05/30/21 11:20 BP 146/62 05/30/21 11:20 Pulse Ox 90 05/30/21 11:20 05/30/21 05/30/21 05/30/21 06:59 14:59 22:59 Intake Total 1202.5 / 1702.5 Output Total 600 / 600 Balance 1202.5 / 1402.5 -600 / -600 Weight last 48 hrs Weight 56.245 kg Weight 56.245 kg Weight 56.245 kg Physical Exam Narrative: EXAM NARRATIVE: General exam demonstrates an anxious appearing female, in no distress Neck is supple no lymphadenopathy or thyromegaly Cardiovascular tachycardic, no murmur. Chest demonstrates no bruise Lungs clear but with diminished breath sounds bilaterally Abdomen is soft, positive bowel sounds. No obvious organomegaly Extremities no cyanosis clubbing or edema, cap refill brisk Neuro no obvious other focal deficits although slight left facial droop. Family is not sure if this is old or new but they noticed no significant abnormalities in speech or facial expressions. She is able to do a bedside swallow without difficulty. Data : 05/30/21 09:13 05/30/21 09:13 A&P Assessment and plan (1) Tongue swelling: This could represent angioedema which is improving. Continue prednisone, and decrease to 20 mg a day. Note that she received 125 mg of Solu-Medrol in the emergency department Loratadine 10 mg daily CRP, sed rate, complement level, tryptase all ordered and so far no concerns. Further evaluation today with MRI considering initial abnormal CT scan, abnormal physical exam with facial droop demonstrated CVA, subacute per symptoms, right basal ganglia area. Status: Acute (2) COPD exacerbation: Continue prednisone for 2 more days DuoNeb every 6 hours Continue doxycycline Significant shortness of breath yesterday appears to be improving. Will need to be monitored until tomorrow Status: Acute (3) Facial asymmetry: Appears to be a subacute CVA Plavix, aspirin, statin Carotid duplex no flow-limiting disease Echocardiogram diminished ejection fraction. Will need outpatient cardiology follow-up with stress testing after recovery from CVA Status: Acute (4) Acute kidney injury: Stable currently Status: Acute (5) Leukocytosis: Improved Status: Acute (6) Lung nodule: CTA demonstrated a significant amount of vascular disease with subclavian disease on the left, renal disease. No pulmonary embolism. Will need further evaluation as outpatient with perhaps PET/CT of pulmonary nodule. Pulmonary follow-up will be essential. Status: Acute (7) Falls: History of falls without injury. Pulmonary embolism will need to be ruled out. Note that she has significant tachycardia and tachypnea associated with shortness of breath. Status: Acute Additional A&P Information Diabetes mellitus type 2. Sliding scale insulin Hypertension, amlodipine adjusted. Metoprolol added. Currently does not need further permissive hypertension secondary to subacute timing of CVA. Tobacco dependency, encourage abstinence Full code Lovenox for DVT prophylaxis Likely discharge tomorrow Attestations Medical Necessity Statement*: Needs continued hospitalization for close monitoring after CVA, COPD exacerbation Coding Level of Care Code Acute In Flight Crew Member for Chg Fwd Diagnoses Tongue swelling R22.0 COPD exacerbation J44.1 Facial asymmetry Q67.0 Acute kidney injury N17.9 Leukocytosis D72.829 Lung nodule R91.1 Falls W19.XXXA
[2021-05-30 15:38] LABS: Erythrocyte Sedimentation Rate 9 mm/hr (0-15)
[2021-05-30] MEDS: clopidogrel 75 mg Tablet PO (17:03)
[2021-05-30 17:34] LABS: Glucose Point of Care 188 mg/dL (70-110)
[2021-05-30 21:22] LABS: Glucose Point of Care 172 mg/dL (70-110)
[2021-05-30] MEDS: atorvastatin 40 mg Tablet 20 MG PO (21:52)
[2021-05-31] VITALS (15 sets, daily range): BP systolic 147–186; BP diastolic 62–81; PULSE 75–99; RESP 16–20; TEMP 36.2–36.9; O2SAT 87–97
[2021-05-31] MEDS: HYDROcodone-acetaminophen 5-325 mg Tablet 2 TAB PO ×2 (00:59→09:16)
[2021-05-31] MEDS: ipratropium-albuterol 3 mL Neb INHALATION ×4 (03:17→23:39)
[2021-05-31 06:12] LABS: Basophils % 0.2 %; Eosinophils # 0.1 10^3/uL (0.0-0.8); Eosinophils % 0.5 %; Hematocrit 40.8 % (37.0-47.0); Hemoglobin 13.4 g/dL (11.5-15.3); Lymphocytes # 1.8 10^3/uL (0.8-4.8); Mean Corpuscular HGB Conc 32.8 g/dL (30.0-36.0); Mean Corpuscular Hemoglobin 30.2 pg (28.0-34.0); Mean Corpuscular Volume 92.1 fl (81-99); Mean Platelet Volume 8.7 fL (7.4-10.4); Monocytes % 10.9 %; Neutrophils # 6.43 10^3/uL (1.8-7.7); Neutrophils % 68.9 %; Nucleated Red Blood Cells % 0 %; Platelet Count 218 10^3/cmm (130-400); Red Blood Count 4.43 10^6/uL (4.1-5.3); Red Cell Distribution Width 12.5 % (12.1-15.1); White Blood Count 9.3 10^3/uL (4.0-10.0)
[2021-05-31] MEDS: amlodipine 5 mg Tablet 10 MG PO (06:26)
[2021-05-31 06:32] LABS: Anion Gap 15.3 (5-19); Blood Urea Nitrogen 38 mg/dL (8-23); Calcium 9.2 mg/dL (8.5-10.5); Carbon Dioxide 22 mmol/L (22-29); Chloride 101 mmol/L (98-107); Glucose 125 mg/dL (65-115); Osmolality Calculated 289 mOsm/kg (285-295); Potassium 4.3 mmol/L (3.5-5.1); Sodium 134 mmol/L (136-145)
[2021-05-31 06:33] LABS: Glucose Point of Care 135 mg/dL (70-110)
[2021-05-31] MEDS: metoprolol tartrate 25 mg Tablet 12.5 MG PO (09:17)
[2021-05-31] MEDS: loratadine 10 mg Tablet PO (09:17)
[2021-05-31] MEDS: clopidogrel 75 mg Tablet PO (09:17)
[2021-05-31] MEDS: doxycycline 100 mg Tablet PO ×2 (09:17→17:15)
[2021-05-31] MEDS: aspirin 325 mg EC Tablet PO (09:17)
[2021-05-31] MEDS: predniSONE 20 mg Tablet PO (09:18)
[2021-05-31 11:26] LABS: Glucose Point of Care 136 mg/dL (70-110)
--- NOTE | 2021-05-31 13:42 | XRR_ITS ---
PROCEDURE INFORMATION: Exam: XR Abdomen Exam date and time: 05/31/2021 1:42 PM Age: 75 years old Clinical indication: Abdominal pain; Additional info: Rule out bowel obstruction/ileus? , PT has brown vomitting, no bm since few days, absent bs TECHNIQUE: Imaging protocol: XR of the abdomen. Views: Frontal supine view of the abdomen. 1 View. COMPARISON: CR XR ribs BI mn 4V w CXR1V [id number] 05/29/2021 9:43 AM FINDINGS: Gastrointestinal tract: Colonic constipation is present. No definitely dilated loops of bowel are seen. This is not optimally evaluated by radiograph. Bones/joints: Unremarkable. XR/XR KUB portable [id number] IMPRESSION: Colonic constipation is present. Radiation Dose CTDIVOL = (mGy): DLP = (mGy-cm)
--- NOTE | 2021-05-31 15:03 | P.PN_ITS ---
Subjective Subjective: Interval history: Seen this morning. She is doing well. Denies being constipated. She feels she is ready to go home. This afternoon however prior to discharge patient vomited dark brown vomitus. She was made n.p.o. and stat KUB was done which showed colonic constipation with pellets in rectum. She was given milk molasses enema. Blood pressure also elevated during this admission. Tongue no longer swollen. Vitals/I&O/Wt Last Vital Signs Temp 97.6 F 05/31/21 11:45 Pulse 80 05/31/21 11:45 Resp 18 05/31/21 11:45 BP 152/74 05/31/21 11:45 Pulse Ox 95 05/31/21 11:45 05/31/21 05/31/21 05/31/21 06:59 14:59 22:59 Intake Total 200 / 200 320 / 320 Output Total 400 / 400 Balance 200 / -400 -80 / -80 Weight last 48 hrs Weight 56.245 kg Physical Exam Narrative: EXAM NARRATIVE: General: Alert oriented x3, patient seen sitting up in chair appearing comfortable on 2 L nasal cannula. HEENT: Normocephalic, atraumatic, EOMI, tongue no longer swollen. Cardio: Regular rate rhythm, normal S1-S2, Respiratory: Diminished bilateral air entry but clear to auscultation overall. No wheezes no rhonchi appreciated GI: Abdomen soft, nontender, mildly distended abdomen, bowel sounds + Behavior: Appropriate and cooperative Extremities: Pulses 2+, no edema, no cyanosis Neuro: Cranial nerves intact, peripheral intact, strength upper and lower extremity 5 out of 5, no focal neurological deficits, sensation intact upper and lower extremity. Patient does have mild facial droop on left side unsure if this is new but has been documented in previous notes. Data : 05/31/21 06:03 05/31/21 06:03 A&P Assessment and plan (1) CVA (cerebral vascular accident): Status: Acute (2) Falls: Status: Acute (3) Acute kidney injury: Status: Acute (4) Facial asymmetry: Status: Acute (5) COPD exacerbation: Status: Acute (6) Tongue swelling: Status: Acute (7) Lung nodule: Status: Acute (8) Constipation: Status: Acute Additional A&P Information #Acute right basal ganglia stroke #[facility] #COPD exacerbation #Constipation #Newly reduced EF on ECHo #Tongue Swelling #Uncontrolled hypertension #Lung nodule -Patient started on aspirin statin Plavix it appears to be subacute CVA. ?Acute kidney injury 1.4 creatinine on exertion, improved to 1.1 now back to 1.4. We'll give her gentle hydration with fluids. ?We'll continue prednisone for another day for COPD exacerbation, DuoNeb every 6 hour, continue doxycycline. Shortness of breath has improved significantly. She is also qualified for home oxygen and is will be set up at discharge ?Physical therapy recommended home exercise program ?Lung nodule also fine on CTA. No PE. Pulmonary follow-up at discharge ?Patient is constipated. She was given milk of molasses enema. We will add lactulose and docusate senna. Encouraged to drink more water. She did vomit once. KUB shows colonic constipation with no evidence of small bowel obstruction. ?Uncontrolled hypertension?we'll start patient on losartan 25 daily and increase metoprolol to 25 twice daily for better control. Full code Lovenox for DVT prophylaxis Discharge tomorrow. Attestations Medical Necessity Statement*: Discharge in next 24-hour Coding Level of Care Code Acute Freelance Digital Project Manager for Chg Fwd Diagnoses CVA (cerebral vascular accident) I63.9 Falls W19.XXXA Acute kidney injury N17.9 Facial asymmetry Q67.0 COPD exacerbation J44.1 Tongue swelling R22.0 Lung nodule R91.1 Constipation K59.00
[2021-05-31] MEDS: sennosides-docusate Tablet 2 TAB PO (16:08)
[2021-05-31] MEDS: lactulose oral liq 20 gm/30 mL UDC PO (16:08)
[2021-05-31 16:54] LABS: Glucose Point of Care 167 mg/dL (70-110)
[2021-05-31] MEDS: insulin lispro 100 unit/1 mL SUBCUT (17:15)
[2021-05-31] MEDS: sodium chloride 0.9% 1,000 ML 75 ML IV (18:47)
[2021-05-31 20:27] LABS: Glucose Point of Care 128 mg/dL (70-110)
[2021-05-31] MEDS: atorvastatin 40 mg Tablet 80 MG PO (21:53)
[2021-05-31] MEDS: metoprolol tartrate 25 mg Tablet PO (21:54)
[2021-05-31] MEDS: lactulose oral liq 20 gm/30 mL UDC 30 GM PO (21:56)
[2021-06-01] VITALS (8 sets, daily range): BP systolic 138–182; BP diastolic 59–86; PULSE 78–94; RESP 17–18; TEMP 36.5–36.7; O2SAT 92–98
[2021-06-01 05:45] LABS: Basophils % 0.2 %; Eosinophils % 0.2 %; Hematocrit 40.6 % (37.0-47.0); Lymphocytes # 1.3 10^3/uL (0.8-4.8); Mean Corpuscular Hemoglobin 30.3 pg (28.0-34.0); Mean Corpuscular Volume 94.6 fl (81-99); Mean Platelet Volume 9.2 fL (7.4-10.4); Monocytes # 1.3 10^3/uL (0.2-0.9); Monocytes % 8.8 %; Neutrophils # 11.76 10^3/uL (1.8-7.7); Neutrophils % 81.2 %; Nucleated Red Blood Cells % 0 %; Platelet Count 211 10^3/cmm (130-400); Red Blood Count 4.29 10^6/uL (4.1-5.3); Red Cell Distribution Width 12.6 % (12.1-15.1); White Blood Count 14.5 10^3/uL (4.0-10.0)
[2021-06-01] MEDS: lactulose oral liq 20 gm/30 mL UDC 30 GM PO ×2 (05:45→10:40)
[2021-06-01] MEDS: amlodipine 5 mg Tablet 10 MG PO (05:45)
[2021-06-01 06:06] LABS: Blood Urea Nitrogen 48 mg/dL (8-23); Calcium 8.7 mg/dL (8.5-10.5); Carbon Dioxide 18 mmol/L (22-29); Chloride 102 mmol/L (98-107); Glucose 101 mg/dL (65-115); Osmolality Calculated 291 mOsm/kg (285-295); Sodium 134 mmol/L (136-145)
[2021-06-01 06:12] LABS: Anion Gap 18.7 (5-19); Potassium 4.7 mmol/L (3.5-5.1)
[2021-06-01] MEDS: sodium chloride 0.9% 1,000 ML 75 ML IV (06:32)
[2021-06-01 06:46] LABS: Glucose Point of Care 140 mg/dL (70-110)
[2021-06-01] MEDS: ipratropium-albuterol 3 mL Neb INHALATION (08:57)
[2021-06-01] MEDS: losartan 50 mg Tablet 25 MG PO (09:29)
[2021-06-01] MEDS: loratadine 10 mg Tablet PO (09:30)
[2021-06-01] MEDS: doxycycline 100 mg Tablet PO (09:31)
[2021-06-01] MEDS: aspirin 325 mg EC Tablet PO (09:35)
[2021-06-01] MEDS: sennosides-docusate Tablet 2 TAB PO (09:35)
[2021-06-01] MEDS: metoprolol tartrate 25 mg Tablet PO (09:35)
[2021-06-01] MEDS: predniSONE 20 mg Tablet PO (09:35)
[2021-06-01] MEDS: clopidogrel 75 mg Tablet PO (09:36)
--- NOTE | 2021-06-01 10:52 | XRR_ITS ---
PROCEDURE INFORMATION: Exam: XR Abdomen Exam date and time: 06/01/2021 10:52 AM Age: 75 years old Clinical indication: Constipation; Additional info: Follow up constipation TECHNIQUE: Imaging protocol: XR of the abdomen. Views: Frontal supine view of the abdomen. 1 View. COMPARISON: CR (ABDOMEN, ) 05/31/2021 1:57 PM FINDINGS: Gastrointestinal tract: Normal. No bowel dilation. Bones/joints: There are degenerative changes in the visualized spine. Degenerative changes extend across the hip joints. Other findings: Moderate stool burden, decreased when compared to the prior study. XR/XR KUB portable [id number] IMPRESSION: Moderate stool burden, decreased when compared to the prior study. Radiation Dose CTDIVOL = (mGy): DLP = (mGy-cm)
[2021-06-01 11:53] LABS: Glucose Point of Care 166 mg/dL (70-110)
--- NOTE | 2021-06-01 12:09 | P.DS_ITS ---
Discharge Providers Date of Admission: 05/30/21 16:10 Date of Discharge: June 01, 2021 Attending Provider at Admission: Javy Jackson MD Attending Provider at Discharge: Kindra Bingham MD Primary Care Provider: Marty Sanchez DO Diagnoses at Discharge Discharge Diagnosis (1) CVA (cerebral vascular accident): Status: Acute Permanent problem details: Lacunar, seen on CT 05/29 (2) Falls: Status: Resolved (3) Acute kidney injury: Status: Resolved (4) Facial asymmetry: Status: Acute (5) COPD exacerbation: Status: Resolved (6) Tongue swelling: Status: Resolved (7) Lung nodule: Status: Acute (8) Constipation: Status: Acute Reason for Visit Reason for Visit: Fall, Swollen tongue Wednesday, [facility] Hospital Course Hospital Course HPI as per Dr. Jackson: Shania Tovar is a 75 year old female who presented to the hospital with complaints of tongue swelling. She states this started on Wednesday. She had gone to her primary care provider and got diagnosed with what sounds like a COPD exacerbation as well and was started on doxycycline prednisone and Mucinex. Since that time she has had 2 separate falls. First fall was when she missed stepped on a ladder and the second 1 she was setting on a bench and fell off. She is not for sure if she lost consciousness. She reports she has some weak ness of her left upper extremity, which is chronic secondary to breast surgery in the past and unchanged. She has had some difficulty swallowing to what she attributes as tongue swelling. She reports both swallowing difficulty, and tongue swelling seem to be improving. She denies any other new medications. She reports that she has had no fever, cough or exposure to Covid. She is not vaccinated. She has had no vomiting. She has had a little bit of nausea, and headache at times but nothing severe. She reports her chest discomfort, is when she takes a big breath and she attributes that to falling and injuring her left lower chest although no bruises present. She reports she chronically has shortness of breath, and sometimes wheezes. She has a long history of tobacco dependency and gets winded with only minimal exertion. Course: Patient presented with tongue swelling and was diagnosed with COPD exacerbation. She had a few falls and developed weakness of her left upper extremity along with difficulty swallowing due to her tongue swelling presented to the hospital. She was diagnosed with acute right basal ganglia stroke. She was started on aspirin Plavix statin. Symptoms have resolved on the day of discharge. She will be following up with neurology outpatient Also diagnosed with acute kidney injury which did improve with fluids. For his COPD exacerbation she was treated with steroids. She also qualified for home oxygen and was set up with that. Physical therapy recommended home exercise program. She was given a walker at discharge A lung nodule was also found on CTA at admission. Pulmonology follow-up given at discharge. Patient also had uncontrolled hypertension and she was started on losartan for that. Tongue swelling did resolve on day of discharge. During stroke work-up she was also found to have newly reduced EF on echocardiogram. She was given a cardiology follow-up at discharge. Patient also developed constipation during hospital stay. She had one episode of nausea vomiting and therefore discharge was held. She was started on a bowel regimen KUB was followed. Decrease stool burden was seen and patient was discharged home on a bowel regimen along with the rest of her medications. Patient's son was present at bedside and updated. Her second son was updated over the phone as well. Physical Exam Narrative: EXAM NARRATIVE: General: Alert oriented x3, patient seen sitting up in chair appearing comfortable on 2 L nasal cannula. HEENT: Normocephalic, atraumatic, EOMI, tongue no longer swollen. Cardio: Regular rate rhythm, normal S1-S2, Respiratory: Diminished bilateral air entry but clear to auscultation overall. No wheezes no rhonchi appreciated GI: Abdomen soft, nontender, mildly distended abdomen (less compared to yesterday), bowel sounds + Behavior: Appropriate and cooperative Extremities: Pulses 2+, no edema, no cyanosis Neuro: Cranial nerves intact, peripheral intact, strength upper and lower extremity 5 out of 5, no focal neurological deficits, sensation intact upper and lower extremity. Patient does have mild facial droop on left side unsure if this is new but has been documented in previous notes. Discharge Data Data Completed and Pending: Completed Studies During Hospitalization Category Date Time Status CT angio chest PE protcl [id number] Urge nt Cat Scan 05/29/21 12:[address] head wo con* 7 [id number] Stat Cat Scan 05/29/21 08:28 Completed XR KUB portable 7 [id number] Stat Exams 05/31/21 13:42 Completed XR ribs BI mn 4V w CXR1V [id number] Stat Exams 05/29/21 08:26 Completed MR head wo con* 7 [id number] Routine MRI 05/30/21 12:00 Completed CV carotid duplex BI* [id number] Routine Ultrasound 05/30/21 06:00 Completed CV. echo complete * [id number] Routine Ultrasound 05/30/21 06:00 Completed Pending at discharge Category Date Time Status XR KUB portable 7 4018 Urgent Exams 06/01/21 10:52 Ordered Tryptase Routine Lab 05/29/21 09:05 Received Labs from last 24 hours 06/01/21 06/01/21 06/01/21 11:15 06:33 04:43 WBC RBC Hgb Hct MCV MCH MCHC RDW Plt Count MPV Neut % (Auto) Lymph % (Auto) [place] % (Auto) Eos % (Auto) Baso % (Auto) Neut # (Auto) Lymph # (Auto) [place] # (Auto) Eos # (Auto) Baso # (Auto) Nucleated RBC % (a uto) Nucleated RBCs # Sodium 134 L Potassium 4.7 Chloride 102 Carbon Dioxide 18 L Anion Gap 18.7 BUN 48 H Creatinine 1.2 H GFR Calculation Not Reportable Glucose 101 POC Glucose 166 H 140 H Calculated Osmolal ity 291 Calcium 8.7 06/01/21 05/31/21 05/31/21 04:43 20:22 16:50 WBC 14.5 H RBC 4.29 Hgb 13.0 Hct 40.6 MCV 94.6 MCH 30.3 MCHC 32.0 RDW 12.6 Plt Count 211 MPV 9.2 Neut % (Auto) 81.2 Lymph % (Auto) 9.0 [place] % (Auto) 8.8 Eos % (Auto) 0.2 Baso % (Auto) 0.2 Neut # (Auto) 11.76 H Lymph # (Auto) 1.3 [place] # (Auto) 1.3 H Eos # (Auto) 0.0 Baso # (Auto) 0.0 Nucleated RBC % (a uto) 0 Nucleated RBCs # 0.0 Sodium Potassium Chloride Carbon Dioxide Anion Gap BUN Creatinine GFR Calculation Glucose POC Glucose 128 H 167 H Calculated Osmolal ity Calcium Vitals: Last Vital Signs Temp 97.9 F 06/01/21 11:15 Pulse 80 06/01/21 11:15 Resp 17 06/01/21 11:15 BP 138/59 11/14/21 11:15 Pulse Ox 98 06/01/21 11:15 Discharge Plan Discharge Patient Disposition: Home Condition: Stable Prescriptions: New atorvastatin 40 mg Tablet 80 mg PO BEDTIME 30 Days Qty: 30 RF: 0 clopidogrel 75 mg Tablet 75 mg PO DAILY 30 Days Qty: 30 RF: 0 amlodipine 5 mg Tablet 10 mg PO QAM 30 Days Qty: 60 RF: 0 losartan 50 mg Tablet 25 mg PO DAILY 30 Days Qty: 30 RF: 0 metoprolol tartrate 25 mg Tablet 25 mg PO BID@0900,2100 30 Days Qty: 60 RF: 0 Miralax 17 gram/dose powder 17 g PO DAILY PRN (Reason: constipation) 15 Days Qty: 119 RF: 0 Continued aspirin 325 mg Tablet 325 mg PO BID PRN (Reason: Pain) RF: 0 montelukast 10 mg tablet 10 mg PO DAILY RF: 0 Mucinex 600 mg tablet extended release 12hr 600 mg PO BID PRN (Reason: Congestion) RF: 0 Discontinued prednisone 20 mg tablet 20 mg PO BID RF: 0 amlodipine 5 mg tablet 5 mg PO QAM RF: 0 lisinopril 40 mg tablet 40 mg PO QAM RF: 0 doxycycline hyclate 100 mg tablet 100 mg PO BID RF: 0 Discharge Orders: Discharge Order (Routine); Ordered 06/01/21 Ordered By: Kindra Bingham Other Ambulatory Orders: DME: Oxygen (Order) Location: None Selected Ordered By: Kindra Bingham DME: Walker (Order) Location: None Selected Ordered By: Javy Jackson DME: Biju (Order) Location: None Selected Ordered By: Kindra Bingham Referrals: Rakel Arzola MD [Physician] - 06/23/21 12:00 pm (Follow-up CVA, Please contact Dr Arzola for a Follow-up within the next 2 weeks) DatarRome MD [Physician] - 06/30/21 2:45 pm Gagandeep Dewitt M.D [Physician] - 06/11/21 2:30 pm Marty Sanchez DO [Primary Care Provider] - 06/16/21 3:00 pm Discharge Diet: Cardiac and Low Cholesterol Discharge Activity: Increase activity as tolerated and As per PT/OT instructions Patient Instructions: Metoprolol (By mouth), Doxycycline (By mouth), Prednisone (By mouth), Amlodipine (By mouth), Losartan (By mouth), Atorvastatin (By mouth), Clopidogrel (By mouth), Polyethylene Glycol 3350 (By mouth), Constipation (GEN), Opioid Safety Activity Restrictions/Additional Instructions: Please arrange pulmonary follow-up for pulmonary nodule within the next 7 to 10 days Please arrange cardiology follow-up, for subclavian stenosis as well as diminished EF Discharge Attestations Time Spent in Discharge Care*: greater than 30 min Quality Metrics Clinical Quality Measures During this hospital stay, did patient experience: Stroke Contraindication to Antithrombotic: Antithrombotic prescribed Contraindication to Anticoagulation: Anticoagulation prescribed Contraindication to Statin: Statin prescribed and None Coding Level of Care Code Acute Chg FW DC note Diagnoses CVA (cerebral vascular accident) I63.9 Falls W19.XXXA Acute kidney injury N17.9 Facial asymmetry Q67.0 COPD exacerbation J44.1 Tongue swelling R22.0 Lung nodule R91.1 Constipation K59.00
== END 2021-06-01 13:52 | disposition home or self-care (01) | DRG 65 ==
LOC: ER 08:49 → MEDSURG 14:09
PROVIDERS: Admitting Provider Internal Medicine; Emergency Provider Emergency Medicine; PCP Internal Medicine; Visit Provider Internal Medicine
DX: I63.89 Other cerebral infarction (principal); J44.1 Chronic obstructive pulmonary disease with (acute) exacerbation; N17.9 Acute kidney failure, unspecified; R29.810 Facial weakness; R22.0 Localized swelling, mass and lump, head; I10 Essential (primary) hypertension; D72.829 Elevated white blood cell count, unspecified; R91.1 Solitary pulmonary nodule; R00.0 Tachycardia, unspecified; R06.82 Tachypnea, not elsewhere classified; R93.1 Abnormal findings on diagnostic imaging of heart and coronary circulation; R07.89 Other chest pain; W08.XXXA Fall from other furniture, initial encounter; K59.09 Other constipation; E11.9 Type 2 diabetes mellitus without complications; F17.200 Nicotine dependence, unspecified, uncomplicated; R11.2 Nausea with vomiting, unspecified; R13.10 Dysphagia, unspecified; Z79.82 Long term (current) use of aspirin; Z91.81 History of falling; Z90.10 Acquired absence of unspecified breast and nipple; Z82.49 Family history of ischemic heart disease and other diseases of the circulatory system; Z85.3 Personal history of malignant neoplasm of breast; Z86.73 Personal history of transient ischemic attack (TIA), and cerebral infarction without residual deficits
CPT/HCPCS: 36415; 36416; 70450; 70551; 71111; 71275; 74018; 80048; 80053; 80061; 81001; 82962; 83520; 83690; 83880; 84443; 84484; 85025; 85610; 85651; 85730; 86140; 86160; 87426; 92507; 92523; 92526; 92610; 93005; 93306; 93880; 94640; 96372; 97161; 97165; 97530; 99285; G0378; J1815; J3490; J7030; J7040; J7512; Q9967

== ENCOUNTER → 2021-07-02 10:19 | Outpatient (BNVA) | payer MEDICARE, OTHER, SELFPAY | PROVIDERS: PCP Internal Medicine; Referring Provider Internal Medicine; Visit Provider Internal Medicine | DX: Z01.818 Encounter for other preprocedural examination (principal) | CPT/HCPCS: 80048; 85025; 85610; 87635 ==

== ENCOUNTER 2021-07-07 05:35 | Outpatient (CLI) | payer MEDICARE, OTHER, SELFPAY ==
[2021-07-07] VITALS (17 sets, daily range): BP systolic 94–181; BP diastolic 52–108; PULSE 70–77; RESP 14–25; TEMP 36.1; O2SAT 90–95; BMI 22.8
--- NOTE | 2021-07-07 06:00 | XACV_ITS ---
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 Left to right collateral are seen. * Right heart cath findings: Artery pressure: 16/17/13 mmHg RV pressure: 45/9/12 mmHg PA pressure: 47/18/30 mmHg PCW: 19/16/15 mmHg AO sat: 92% PA sat: 80% Cardiac output by Evaristo: 7 Cardiac index by Evaristo: 5. * Left Main has no disease. * Proximal Left Anterior Descending: minimal 30% stenosis, TJ: 3 flow. * Distal Left Anterior Descending: severe 90% stenosis, TJ: 3 flow. * Proximal Circumflex: minimal 30% stenosis, TJ: 3 flow. * Coronary angiography shows right dominance. Conclusions 1. Chronic total occlusion of RCA is noted. 2. Mild to moderate 3. disease in the LAD and 4. left circumflex artery.. 5. Mildly increased right and left-sided pressures. Recommendations * Aggressive risk factor control. * Will start lasix as outpatient. * Outpatient cardiology follow up in 4 weeks. Interventional RX Recommendation: medical therapy and/or counseling Diagnostic RX Recommendation: medical therapy and/or counseling Anticoagulation: Heparin Pressures Phase:Rest AO : 128 / 68 ( 94 ) @ 5:54:00 AM 121 / 65 ( 91 ) @ 5:55:00 AM RV : 45 / 9 / 12 @ 5:43:00 AM PA : 47 / 18 ( 30 ) @ 5:41:00 AM RA : a wave = 16 v wave = 17 mean = 13 @ 5:44:00 AM PCW : a wave = 19 v wave = 16 mean = 15 @ 5:41:00 AM O2 Content Phase:Rest PA : O2 Content O2: 79.6 @ 5:54:00 AM Saturations Phase:Rest AO : 92 @ 5:55:00 AM PA : 80 @ 5:54:00 AM Cardiac Output Phase:Rest Evaristo : 7 @ 8:08:02 AM Evaristo Cardiac Index: 5 @ 8:08:02 AM Flow Phase:Rest Qp : 7 @ 8:08:02 AM Qs : 7 @ 8:08:02 AM Clinical Evaluation EBL: 5mL-10mL Procedural Details Procedure Consent Obtained. Pre-Procedure Time Out. Identified patient by full name and date of as verbalized by the patient/guarantor. Does the consent match the physician's order: Yes. Accurate & Complete Informed Consent: Yes. Inpatient/Outpatient History & Physical on Chart: Yes. If H&P is completed, is and addenduem needed: No; If yes, is the addendum complete: N/A. Visualize and Verify Site with Patient/Guarantor: N/A. Relevant Radiology Images available: N/A. Pre-op teaching completed and patient verbalized understanding. The risks, benefits, and alternatives of sedation and/or procedure were discussed by physician. The patient agrees to continue. Procedure started. [facility] Clinical Fraility Score: 3: Managing Well. Video Engineer Indications: LV Dysfunction. Chest Pain Symptom Assessment: Atypical Angina. Cardiovascular Instability: No. Correct patient, site and procedure confirmed by cath team. PERRLA. Strong, equal hand natural science manager bilaterally. Lungs clear x 5 lobes. IV Site on Arrival: 20 gauge in the right forearm. IV Fluids: 0.9% NaCl at KVO. 0 mL infused prior to film laboratory technician. Pre Procedural Pulses: right dorsalis pedis was 1+. Pre Procedural Pulses: left dorsalis pedis was Doppled. Pre Procedural Pulses: bilateral posterior tibial was Doppled. Pre Procedural Pulses: bilateral radial was 3+. right groin was prepped with chloroprep then draped in the usual sterile fashion. right radial was prepped with chloroprep then draped in the usual sterile fashion. right brachial was prepped with chloroprep then draped in the usual sterile fashion. Physician arrived. Baseline sample Acquired. HR: 81 BPM. Equipment: 6F - Radial. Cardiac Cath Pack. ACIST Manifold Kit Model BT 2000. Heparinized Saline (2 units/mL), 1000 mL bag. Physician scrubbed in. Immediate Pre-Procedure Time Out. Correct Patient: Yes; Correct Procedure: Yes; Correct Site: Yes; Correct Patient Position: Yes; Correct Supplies: Yes; Dried Flammable Prep: Yes; Blood Products Available: N/A;. Wire inserted through IV catheter in right brachial vein. A 20 gauge IV was started in the right anticubital using aseptic technique. Lidocaine 1% infiltrated to the right brachial. IV catheter removed over wire. [place]-Favian MON catheter inserted. [place] wire inserted to advance SWAN catheter. [place] wire out. Oximetry samples were obtained. Normal venous range: 60-85%. Normal arterial range: 95-100%. Pressure measurements obtained. [place]-Favian out. Lidocaine 1% infiltrated to the right radial. Arterial access obtained. wire and needle out. Arterial access obtained. A 5 arabic TIG catheter in over wire. Multiple views taken of left coronary artery. Catheter redirected to the RCA. Multiple views taken of right coronary artery. Catheter removed over the exchange wire. Physician scrubbed out. A Manual Compression was successful obtaining hemostatsis at the Right Brachial Vein insertion site. A TR Band was successful obtaining hemostatsis at the Right Radial artery insertion site. TR band placed. Hemostasis obtained. Sheath(s) removed and manual pressure held until hemostasis was achieved. Sterile 4x4 and Op-site applied to the puncture site. No oozing or hematoma noted. Post sheath removal instructions were given and the patient verbalized understanding. Post Procedure: Pulses reassessed and unchanged. PERRLA. Strong, equal hand natural science manager bilaterally. No VTE prophylaxis required. Medication's Wasted: Lidocaine 1% = 18 mL. Medication's Wasted: Nitro = 49.8 mg. Medication's Wasted: Heparin = 1000 units. Medication's Wasted: Other = versed 1 mg. Medication's Wasted: Other = fentanyl 100 mcg. Total IV fluids: 60 mL. Contrast type used: Visipaque 320 mgI/mL, 500 mL bottle. 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 Complications: none. Estimated blood loss: 5mL-10mL. Responsiveness - Normal response to verbal stimuli; alert and oriented, PERRLA. Airway - Unaffected, no intervention required; spontaneous ventilation. Circulation: W/N/L, pulses unchanged. Nausea/Vomiting: No. Procedure completed. Patient transferred by stretcher to CPRU. Vital chart was stopped. Access Site Site: Right Brachial Vein Sheath Size: 6 Fr Hemostasis Method: Manual Compression Hemostasis Success: Successful Site: Right Radial artery Sheath Size: 6 Fr Hemostasis Method: TR Band Hemostasis Success: Successful Procedure Medications Start: 7:26 AM Stop: 7:26 AM Medication: Versed Amount: 1 mg Route: I.V. Start: 7:51 AM Stop: 7:51 AM Medication: Nitrogylcerin Amount: 100 mcg Route: I.A. Start: 7:53 AM Stop: 7:53 AM Medication: Heparin Amount: 5000 units Route: I.V. I, the attending physician, have reviewed and verified all procedure medications. Yes, all medications given per verbal order History/Risk Factors Hypertension: Yes Dyslipidemia: No Peripheral Arterial Disease (PAD): No Myocardial Infarction (AL): No Obesity: No Renal Disease: No Tobacco Use: Former Prior Interventions PCI: No CABG: No Valve Surgery: No Report Signatures Finalized by Gagandeep Dewitt MD on 07/16/2021 10:19 AM
[2021-07-07] MEDS: diphenhydrAMINE 50 mg Capsule PO (06:40)
--- NOTE | 2021-07-07 07:16 | W.PM.OPSUD ---
Surgery/Procedure H&P Update DATE OF PROCEDURE: July 07, 2021 DATE H&P PERFORMED: 06/11/21 H&P UPDATE INFORMATION: I have reviewed H&P completed within last 30 days, I have examined patient prior to procedure and No changes to prior documentation PREOP DIAGNOSIS: HFrEF PRIMARY INDICATION FOR PROCEDURE: New onset congestive heart failure PLANNED PROCEDURE: Operation Date: 07/07/21 07:00 Proposed Procedures p Cardiac Catheterization(Left) - Gagandeep Dewitt M.D Possible percutaneous coronary intervention PATIENT REASSESSED PRIOR TO SEDATION, WITH NO CHANGE NOTED: Yes PHYSICAL EXAM: alert, oriented x 3, clear to auscultation bilaterally and regular rate & rhythm AIRWAY EVAL/ANESTHESIA PLAN: ASA III, Monitored Anesthesia, Local Anesthesia, Risks, benefits & alternatives of sedation and/or procedure discussed and Patient agrees to continue as planned
[2021-07-07 07:51] LABS: Arterial Blood Gas Hematocrit 34.1 % (37-47); Blood Gas Operator Identificat PULM ARTERY; Blood Gas Sample Site Not specified; Blood Gas Sample Type Venous; Carboxyhemoglobin 1.5 %THgb (0.4-20.1); HGB O2 Sat 77.9 % (95-100); Methemoglobin 0.6 % (0.4-1.5); Total Hemoglobin 11.1 g/dL (12-16)
[2021-07-07 07:56] LABS: Alveolar-Arterial Oxygen Gradi 5.8 mmHg (5-10); Blood Gas Operator Identificat AO; Blood Gas Sample Site Not specified; Blood Gas Sample Type Arterial; Carboxyhemoglobin 1.4 %THgb (0.4-20.1); HGB O2 Sat 90.3 % (95-100); Methemoglobin 0.7 % (0.4-1.5); Oxygen Device ROOM AIR; Total Hemoglobin 10.8 g/dL (12-16)
--- NOTE | 2021-07-07 08:10 | PC.NURSE ---
Received patient from flower shop laborer/designer for recovery. Pt alert and oriented. Denies pain. TR band to right radial artery containing 10ml air. Site asymptomatic. Radial pulse palpable. Pt placed on bedside cardiac nurse specialist. Call light in reach.
--- NOTE | 2021-07-07 08:27 | PC.NURSE ---
Clarification of fluid status Dr. Dewitt gave verbal orders for NS at 100ml/hr until discharge. Fluids started at this time from intraprocedural NS bag.
--- NOTE | 2021-07-07 09:15 | PC.NURSE ---
1 ml air removed from right radial TR band. Site asymptomatic. Radial pulse palpable. Will continue to monitor.
--- NOTE | 2021-07-07 09:30 | PC.NURSE ---
2ml air removed from right radial TR band. Site asymptomatic. No signs of oozing/hematoma. Denies pain. Radial pulse palpable. Will continue to monitor.
--- NOTE | 2021-07-07 09:45 | PC.NURSE ---
2ml air removed from right radial TR band. Site asymptomatic. No signs of oozing/hematoma. Denies pain. Radial pulse palpable. Will continue to monitor
--- NOTE | 2021-07-07 09:55 | PC.NURSE ---
1 ml air removed from right radial TR band. Site asymptomatic , no oozing/bleeding or hematoma formation observed. Pt denies pain. Will continue to monitor.
--- NOTE | 2021-07-07 10:06 | PC.NURSE ---
2ml air removed from right radial TR band. Site asymptomatic. No signs of oozing/hematoma. Denies pain. Radial pulse palpable. Will continue to monitor
--- NOTE | 2021-07-07 10:22 | PC.NURSE ---
Pt ambulated to bathroom and back to bed. TR band site asymptomatic. Remaining 2ml air removed from band once back to bed. No signs of oozing or hematoma. Band is now deflated but left in place to monitor for bleeding. Will continue to monitor.
[2021-07-07 15:40] LABS: Oxygen Device ROOM AIR
== END 2021-07-07 12:17 | disposition home or self-care (01) ==
PROVIDERS: PCP Internal Medicine; Visit Provider Internal Medicine
DX: I50.20 Unspecified systolic (congestive) heart failure (principal); I65.21 Occlusion and stenosis of right carotid artery; I11.0 Hypertensive heart disease with heart failure; Z87.891 Personal history of nicotine dependence; Z79.82 Long term (current) use of aspirin; J44.9 Chronic obstructive pulmonary disease, unspecified; Z86.73 Personal history of transient ischemic attack (TIA), and cerebral infarction without residual deficits; E11.9 Type 2 diabetes mellitus without complications; Z85.3 Personal history of malignant neoplasm of breast
CPT/HCPCS: 36415; 82810; 93456; C1751; C1769; C1887; C1894; J1644; J2250; J3010; J3490; J7030; Q0163; Q9967

== ENCOUNTER → 2021-07-21 14:05 | Outpatient (BNVA) | payer MEDICARE, OTHER, SELFPAY | PROVIDERS: PCP Internal Medicine; Visit Provider Nurse Practitioner Family | DX: I50.21 Acute systolic (congestive) heart failure (principal) | CPT/HCPCS: 80048 ==

== ENCOUNTER → 2021-09-24 10:23 | Outpatient (BNVA) | payer MEDICARE, OTHER, SELFPAY | PROVIDERS: PCP Internal Medicine; Visit Provider Internal Medicine Pulmonary Disease | DX: Z20.822 Contact with and (suspected) exposure to COVID-19 (principal); Z01.812 Encounter for preprocedural laboratory examination | CPT/HCPCS: 87635 ==

== ENCOUNTER 2021-09-30 09:53 | Outpatient (CLI) | payer MEDICARE, OTHER, SELFPAY ==
--- NOTE | 2021-09-30 13:38 | PFTS_ITS ---
Date of Study:09/30/21 Date of Dictation: MECHANICS: Forced vital capacity (FVC) is reduced. Forced expiratory volume in one second (FEV1) is reduced. FEV1/FVC is reduced. FLOW VOLUME LOOP: Reduced flow at all lung volumes with significant scooping. LUNG VOLUMES: Total lung capacity (TLC) is normal. Residual volume (RV) is increased. DIFFUSING CAPACITY FOR CARBON MONOXIDE: Severely reduced. INTERPRETATION: The postbronchodilator spirometry is consistent with moderate airflow obstruction. There is no significant postbronchodilator response. Lung volumes are consistent with air trapping. Gas exchange (DLCO) is severely reduced. MTDD
== END 2021-09-30 09:54 | disposition home or self-care (01) ==
LOC: RT 09:54
PROVIDERS: PCP Internal Medicine; Visit Provider Internal Medicine Pulmonary Disease
DX: J44.9 Chronic obstructive pulmonary disease, unspecified (principal)
CPT/HCPCS: 94060; 94618; 94726; 94729; J7611

== ENCOUNTER → 2021-10-15 08:36 | Outpatient (BNVA) | payer MEDICARE, OTHER, SELFPAY | PROVIDERS: PCP Internal Medicine; Visit Provider Internal Medicine Pulmonary Disease | DX: J44.9 Chronic obstructive pulmonary disease, unspecified (principal); R91.1 Solitary pulmonary nodule; F17.210 Nicotine dependence, cigarettes, uncomplicated; I50.21 Acute systolic (congestive) heart failure; Z71.6 Tobacco abuse counseling | CPT/HCPCS: 99214 ==

== ENCOUNTER 2021-10-16 14:20 | Outpatient (CLI) | payer MEDICARE, OTHER, SELFPAY ==
--- NOTE | 2021-10-16 15:00 | CT_ITS ---
WS: [id number] CT CHEST TECHNIQUE: Noncontrast CT of the chest with coronal and sagittal reformatted images. CLINICAL INFORMATION: follow up on right upper lobe lesion COMPARISON: CT chest May 29, 2021. PET/CT July 05, 2021 DLP: 645.[address] scans at [facility] use at least one of these dose optimization techniques: automated e xposure control; mA and/or kV adjustment per patient size (includes targeted exams where dose is matc hed to clinical indication); or iterative reconstruction. FINDINGS: Again seen is the spiculated RIGHT upper lobe pulmonary nodule not significantly changed since Novemb 2020. This measures approximately 1.8 x 1.5 cm. Findings are suspicious for pulmonary neoplasm . This demonstrated FDG activity on the prior PET/CT. No other significant changes compared to previous. Moderate chronic emphysematous changes. Ectatic as cending thoracic aorta measuring 3.9 cm. Moderate calcified aortic atheromatous disease. Coronary gregor cification. No mediastinal or hilar lymphadenopathy. No axillary lymphadenopathy. Adrenal glands are normal. Atrophic LEFT kidney. Small esophageal hiatal hernia. Densely calcified up per abdominal aorta with stenosis noted abdominal aorta partially visualized. Moderate thoracic kypho sis with thoracic curve. CT/CT chest wo con [id number] IMPRESSION: 1. Again seen is the spiculated RIGHT upper lobe pulmonary nodule unchanged si nce May 29, 2021. This remains suspicious for neoplasm and demonstrated FD G activity on the prior PET/CT. 2. Stable ectatic ascending thoracic aorta measuring 3.9 CM. 3. Vascular calcification. 4. No mediastinal or hilar lymphadenopathy. 5. Chronic LEFT rib fractures with callus formation.
== END 2021-10-16 14:21 | disposition home or self-care (01) ==
LOC: RAD 14:27
PROVIDERS: PCP Internal Medicine; Visit Provider Internal Medicine Pulmonary Disease
DX: R91.1 Solitary pulmonary nodule (principal); F17.200 Nicotine dependence, unspecified, uncomplicated; I77.810 Thoracic aortic ectasia; S22.42XA Multiple fractures of ribs, left side, initial encounter for closed fracture; X58.XXXA Exposure to other specified factors, initial encounter
CPT/HCPCS: 71250

== ENCOUNTER 2021-12-15 12:08 | Inpatient (IN) | payer MEDICARE, SELFPAY ==
[2021-12-15] VITALS (9 sets, daily range): BP systolic 111–142; BP diastolic 56–76; PULSE 66–89; RESP 16–20; TEMP 36.3–36.6; O2SAT 93–97; BMI 21.9
--- NOTE | 2021-12-15 12:33 | W.ED.GENADLT ---
HPI - General Adult General: Chief complaint: General Medical Stated complaint: N/D Cant eat or drink anything Time Seen by Provider: 12/15/21 12:14 History of Present Illness: Patient is a 76-year-old female with history of CVA with no residual symptoms, DM 2, COPD, CAD presenting to the emergency room generalized weakness, decreased p.o. intake, and diarrhea. He tells me over the last week, he has she has been been feeling increasingly more tired. Not regular, patient has had decreased p.o. intake with multiple episodes of diarrhea throughout the night. Patient denies any abdominal complaints, chest pain, shortness of breath palpitation or lightheadedness. Patient denies any complaints, melena/hematochezia. No other focal neurological deficits. Patient denies LOC. Onset: 1 week ago Duration:1 week Location:home Severity:moderate Associated symptoms: Reports nausea; Deny chest pain, dyspnea, rash, palpitations or vomiting Review of Systems Const: Reports: fatigue and other (+generalized weakness); Denies: fever(s) or chills Eyes: Denies: change in vision ENMT: Denies: mouth pain Card: Denies: chest pain or palpitations Resp: Denies: dyspnea or non-productive cough GI: Reports: nausea, diarrhea and other (+decreased po intake); Denies: abdominal pain or vomiting : Denies: dysuria Musc: Denies: extremity pain Skin/Breast: Denies: rash or new lesions Neuro: Denies: weakness in extremities Psych: Reports: other (Normal mood) Wilian/Lymph: Denies: easy bruising PFSH ED PFSH: Medical History Atherosclerosis of coronary artery COPD (chronic obstructive pulmonary disease) CVA (cerebral vascular accident) Lacunar, 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 History of breast cancer Hypertension Tobacco dependency Surgical History History of appendectomy History of cholecystectomy History of mastectomy Family History Other CAD (coronary artery disease) Social History Smoking and tobacco status: former smoker Quit status (tobacco): has quit using tobacco Year quit tobacco: 2020 Former quit date comment: 2 x 53 years started age 22; quit during hospitalization Alcohol intake: never Physical Exam Const: COMMON NORMALS: alert HENMT: COMMON NORMALS: atraumatic HEAD & SCALP: atraumatic MOUTH: moist mucous membranes abnormal Eye: COMMON NORMALS: EOMs intact bilaterally and conjunctivae normal CONJUNCTIVA: Yes conjunctivae normal Neck/C-Spine: COMMON NORMALS: full ROM and supple Resp: COMMON NORMALS: normal respiratory effort and clear to auscultation bilaterally AUSCULTATION: clear to auscultation bilaterally Cardio: COMMON NORMALS: regular rate RATE: regular rate GI: COMMON NORMALS: Soft to palpation and non-tender PALPATION: Yes Soft to palpation Extremity: COMMON NORMALS: full ROM Neuro: SENSORIUM/ORIENTATION: Yes alert MOTOR EXAM: No Abnormal motor strength present and Other motor observations present (no focal motor deficits) Psych: COMMON NORMALS: speech normal SPEECH: Yes normal speech MOOD & AFFECT: Yes euthymic mood Course Vital Signs: Vital signs: Vital Signs Temperature 97.4 F L 12/15/21 12:18 Pulse Rate 66 12/15/21 13:10 Respiratory Rate 16 12/15/21 13:10 Blood Pressure 111/56 12/15/21 13:10 Pulse Oximetry 93 12/15/21 13:[address] [facility] - General Adult Medical Decision Making 36-year-old female with history of COPD, CVA, diabetes CAD presenting to the emergency room with generalized weakness, decreased p.o. intake nausea diarrhea onset Call exam, patient appears to mildly dry. Patient received 1 L fluid. Patient was found to have hyponatremia of 122. BUN of 129. Creatinine 4.5 up from baseline 1.2. Patient will be admitted to hospital for uremia, KAIA on CKD, hyponatremia, and generalized weakness. Disposition: admission Lab Data : 12/15/21 12:38 12/15/21 12:38 Radiology Impressions Chest X-Ray 12/15/21 12:50 IMPRESSION: 1. No acute findings. 2. Large right pulmonary nodule corresponding finding on chest CT 10/16/2021. Laboratory Results WBC 7.2 10^3/uL (4.0-10.0) 12/15/21 12:38 RBC 4.10 10^6/uL (4.1-5.3) 12/15/21 12:38 Hgb 11.7 g/dL (11.5-15.3) 12/15/21 12:38 Hct 32.9 % (37.0-47.0) L 12/15/21 12:38 MCV 80.2 fl (81-99) L 12/15/21 12:38 MCH 28.5 pg (28.0-34.0) 12/15/21 12:38 MCHC 35.6 g/dL (30.0-36.0) 12/15/21 12:38 RDW 13.1 % (12.1-15.1) 12/15/21 12:38 Plt Count 227 10^3/cmm (130-400) 12/15/21 12:38 MPV 9.0 fL (7.4-10.4) 12/15/21 12:38 Neut % (Auto) 70.5 % 12/15/21 12:38 Lymph % (Auto) 20.1 % 12/15/21 12:38 [place] % (Auto) 7.7 % 12/15/21 12:38 Eos % (Auto) 0.7 % 12/15/21 12:38 Baso % (Auto) 0.6 % 12/15/21 12:38 Neut # (Auto) 5.05 10^3/uL (1.8-7.7) 12/15/21 12:38 Lymph # (Auto) 1.4 10^3/uL (0.8-4.8) 12/15/21 12:38 [place] # (Auto) 0.6 10^3/uL (0.2-0.9) 12/15/21 12:38 Eos # (Auto) 0.1 10^3/uL (0.0-0.8) 12/15/21 12:38 Baso # (Auto) 0.0 10^3/uL (0.0-0.1) 12/15/21 12:38 Nucleated RBC % (auto) 0 % 12/15/21 12:38 Nucleated RBCs # 0.0 /100WBC 12/15/21 12:38 Sodium 122 mmol/L (136-145) L 12/15/21 12:38 Potassium 3.3 mmol/L (3.5-5.1) L 12/15/21 12:38 Chloride 78 mmol/L (98-107) L 12/15/21 12:38 Carbon Dioxide 23 mmol/L (22-29) 12/15/21 12:38 Anion Gap 24.3 (5-19) H 12/15/21 12:38 BUN 129 mg/dL (8-23) H* D 12/15/21 12:38 Creatinine 4.5 mg/dL (0.5-0.9) H 12/15/21 12:38 GFR Calculation Not Reportable 12/15/21 12:38 Glucose 132 mg/dL (65-115) H 12/15/21 12:38 Calculated Osmolality 297 mOsm/kg (285-295) H 12/15/21 12:38 Calcium 9.4 mg/dL (8.5-10.5) 12/15/21 12:38 Total Bilirubin 0.6 mg/dL (0.15-1.2) 12/15/21 12:38 AST 27 U/L (0-32) 12/15/21 12:38 ALT 19 U/L (0-33) 12/15/21 12:38 Alkaline Phosphatase 100 IU/L (35-105) 12/15/21 12:38 Troponin T Baseline 74 ng/L (0-10) H 12/15/21 12:33 Total Protein 7.8 g/dL (6.6-8.7) 12/15/21 12:38 Albumin 4.3 g/dL (3.5-5.2) 12/15/21 12:38 Globulin 3.5 g/dL (1.3-4.6) 12/15/21 12:38 Lipase 98 U/L (13-60) H 12/15/21 12:38 Imaging Data Other Imaging: Radiologist's impression: [facility] [address] [place] [address] XRay Report Signed Patient: Shania Tovar Unit #: [id number] : 1945 Age/Sex: 76 / F ADM Date: 12/15/21 Loc: ER Room/Bed: Attending Dr: Ordering Provider/Ordering MD: Angelo Johnson MD Date of Service: 12/15/21 Procedure(s): XR chest 1V portable [id number] Accession Number(s): [id number] Report Number: [id number] PROCEDURE INFORMATION: Exam: XR Chest Exam date and time: 12/15/2021 12:55 PM Age: 76 years old Clinical indication: Other: N/v for 1 week, weakness; Additional info: Fatigue TECHNIQUE: Imaging protocol: XR of the chest. Views: 1 view. COMPARISON: CT chest [facility] [id number] 10/16/2021 2:42 PM FINDINGS: Lungs: 2.1 cm nodule in the periphery of the right lung corresponding to the nodule visible on chest CT of 10/16/2021. There is no consolidation. Pleural spaces: There is no pleural effusion or pneumothorax. Heart/Mediastinum: Cardiomediastinal contours are unremarkable. Bones/joints: Bones are unremarkable. XR/XR chest 1V portable [id number] IMPRESSION: 1. No acute findings. 2. Large right pulmonary nodule corresponding finding on chest CT 10/16/2021. ? Dictated By: Dale Mejias MD Signed By: Dale Mejias MD Signed Date/Time: 12/15/21 1330 DD/ 1255 Discharge Plan Discharge Patient Disposition: Admitted As Inpatient Clinical Impression: Diarrhea, Decrease in appetite, Fatigue, Acute uremia, Acute kidney injury superimposed on CKD, Acute hyponatremia Condition: Stable Discharge Diet: Advance as tolerated Discharge Activity: Increase activity as tolerated Coding Level of Care Code ED Vice President [employer] for Gerardo Fwd Exam Comprehensive
[2021-12-15 12:49] LABS: Basophils % 0.6 %; Eosinophils # 0.1 10^3/uL (0.0-0.8); Eosinophils % 0.7 %; Hematocrit 32.9 % (37.0-47.0); Hemoglobin 11.7 g/dL (11.5-15.3); Lymphocytes # 1.4 10^3/uL (0.8-4.8); Lymphocytes % 20.1 %; Mean Corpuscular HGB Conc 35.6 g/dL (30.0-36.0); Mean Corpuscular Hemoglobin 28.5 pg (28.0-34.0); Mean Corpuscular Volume 80.2 fl (81-99); Monocytes # 0.6 10^3/uL (0.2-0.9); Monocytes % 7.7 %; Neutrophils # 5.05 10^3/uL (1.8-7.7); Neutrophils % 70.5 %; Nucleated Red Blood Cells % 0 %; Platelet Count 227 10^3/cmm (130-400); Red Cell Distribution Width 13.1 % (12.1-15.1); White Blood Count 7.2 10^3/uL (4.0-10.0)
--- NOTE | 2021-12-15 12:50 | XRR_ITS ---
PROCEDURE INFORMATION: Exam: XR Chest Exam date and time: 12/15/2021 12:55 PM Age: 76 years old Clinical indication: Other: N/v for 1 week, weakness; Additional info: Fatigue TECHNIQUE: Imaging protocol: XR of the chest. Views: 1 view. COMPARISON: CT chest wo con [id number] 10/16/2021 2:42 PM FINDINGS: Lungs: 2.1 cm nodule in the periphery of the right lung corresponding to the nodule visible on chest CT of 10/16/2021. There is no consolidation. Pleural spaces: There is no pleural effusion or pneumothorax. Heart/Mediastinum: Cardiomediastinal contours are unremarkable. Bones/joints: Bones are unremarkable. XR/XR chest 1V portable [id number] IMPRESSION: 1. No acute findings. 2. Large right pulmonary nodule corresponding finding on chest CT 10/16/2021.
--- NOTE | 2021-12-15 12:51 | ECG_ITS ---
[facility] Test Date: 2021-12-15 Pat Name: Shania Tovar Department: Room: Gender: Female Cane Feeder: : 1945 Requested By: Angelo Johnson Order Number: [id number] Lory MD: Gagandeep Dewitt M.D. Measurements Intervals [place] Rate: 66 P: 83 [place]: 197 QRS: 72 QRSD: 97 T: 41 QT: 418 QTc: 438 Interpretive Statements SINUS RHYTHM NONSPECIFIC ST & T-WAVE ABNORMALITY Compared to ECG 05/29/2021 15:38:47 T-wave abnormality now present Sinus tachycardia no longer present Electronically Signed On 12-15-2021 19:41:24 CDT by Gagandeep Dewitt M.D. [id number]
[2021-12-15 13:12] LABS: Alanine Aminotransferase 19 U/L (0-33); Albumin Level 4.3 g/dL (3.5-5.2); Alkaline Phosphatase 100 IU/L (35-105); Anion Gap 24.3 (5-19); Aspartate Amino Transferase 27 U/L (0-32); Calcium 9.4 mg/dL (8.5-10.5); Carbon Dioxide 23 mmol/L (22-29); Chloride 78 mmol/L (98-107); Globulin 3.5 g/dL (1.3-4.6); Glucose 132 mg/dL (65-115); Lipase 98 U/L (13-60); Potassium 3.3 mmol/L (3.5-5.1); Sodium 122 mmol/L (136-145); Total Bilirubin 0.6 mg/dL (0.15-1.2); Total Protein 7.8 g/dL (6.6-8.7)
[2021-12-15 13:28] LABS: Blood Urea Nitrogen 129 mg/dL (8-23); Osmolality Calculated 297 mOsm/kg (285-295)
[2021-12-15 13:31] LABS: Troponin(5th) Baseline 74 ng/L (0-10)
--- NOTE | 2021-12-15 13:46 | CTR_ITS ---
PROCEDURE INFORMATION: Exam: CT Chest Without Contrast; Diagnostic Exam date and time: 12/15/2021 1:55 PM Age: 76 years old Clinical indication: Abdominal tenderness and nausea; Abdominal pain; Generalized; Shortness of breath; Chest pressure and on breathing; Additional info: Spiculated nodule TECHNIQUE: Imaging protocol: Diagnostic computed tomography of the chest without contrast. Radiation optimization: All CT scans at this facility use at least one of these dose optimization techniques: automated exposure control; mA and/or kV adjustment per patient size (includes targeted exams where dose is matched to clinical indication); or iterative reconstruction. COMPARISON: CT chest wo con [id number] 10/16/2021 2:42 PM RADIATION DOSE METRICS: Total DLP (mGy-cm): 1031.68 FINDINGS: Lungs: There is a 1.9 x 1.8 cm nodule in the peripheral inferior aspect of the right upper lobe, stable compared to 10/16/2021. There is no consolidation. There are calcified granulomas in the lower right lung. There is no consolidation. Pleural spaces: There is no pleural effusion or pneumothorax. Heart: There is severe coronary artery calcification. Heart size is normal. There is no pericardial effusion. Lymph nodes: There is no mediastinal or hilar lymphadenopathy. Vasculature: There is moderate aortic atherosclerotic disease. Bones/joints: There are multiple healed left rib fractures. No acute fracture. Soft tissues: Left mastectomy. non-emergent PET/CT, or tissue sampling. (Reference: Bola) REFERENCES: Bola Campos et al. Guidelines for Management of Incidental Pulmonary Nodules Detected on CT Images: From the Fleischner Society 2017. Radiology. 2017;284(1):228-243. PROCEDURE INFORMATION: Exam: CT Abdomen And Pelvis Without Contrast Exam date and time: 12/15/2021 1:55 PM Age: 76 years old Clinical indication: Abdominal tenderness and nausea; Abdominal pain; Generalized; Shortness of breath; Chest pressure and on breathing; Additional info: Spiculated nodule TECHNIQUE: Imaging protocol: Computed tomography of the abdomen and pelvis without contrast. Radiation optimization: All CT scans at this facility use at least one of these dose optimization techniques: automated exposure control; mA and/or kV adjustment per patient size (includes targeted exams where dose is matched to clinical indication); or iterative reconstruction. COMPARISON: CT chest wo con [id number] 10/16/2021 2:42 PM RADIATION DOSE METRICS: Total DLP (mGy-cm): 1031.68 FINDINGS: Liver: The liver has a nodular surface and there is relative hypertrophy of the left and caudate lobe consistent with cirrhosis. Gallbladder and bile ducts: The gallbladder is absent. There is no intrahepatic or extrahepatic bile duct dilation. Pancreas: There is mild atrophy of the pancreas. Spleen: The spleen is unremarkable. Adrenal glands: The adrenal glands are hypertrophic bilaterally. Kidneys and ureters: There is moderate atrophy of the left kidney. There is no hydronephrosis or stones. The right kidney and ureter are unremarkable. Stomach and bowel: The stomach is decompressed, preventing meaningful evaluation of wall thickness. The small bowel is nondilated. There is pancolonic diverticulosis. There is no sign of diverticulitis. Appendix: The appendix is not visible. Intraperitoneal space: There is no free air or significant intraperitoneal free fluid. Vasculature: There is severe aortic atherosclerotic disease. Lymph nodes: There is no lymphadenopathy in the retroperitoneum, mesentery, pelvis or inguinal regions. Urinary bladder: The urinary bladder is unremarkable. Reproductive: The uterus is unremarkable. There is no adnexal mass or large cyst. Bones/joints: There is mild degenerative disease in the lumbar spine. There is a serpiginous band of sclerosis in each femoral head consistent with avascular necrosis. There is no subchondral collapse. Soft tissues: The abdominal wall is intact. CT/CT chest abd pel wo con IMPRESSION: 1. No acute findings. 2. 19 mm right lung nodule. Highly suspicious nodule(s). Consider IMPRESSION: 1. No acute findings. 2. 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 3. Morphologic features of the liver are suggestive of cirrhosis. 4. Incidental findings above.
[2021-12-15] MEDS: sodium chloride 0.9% 500 ML 999 ML IV (14:14)
[2021-12-15 14:15] LABS: NT Pro B Type Natriuretic Pept 713 pg/mL (0-450)
--- NOTE | 2021-12-15 14:40 | P.CONIM_ITS ---
Providers/Reason For Consult Consulting Physician/Specialty*: Nephrology Reason for Consult*: KAIA and electrolyte disorder Primary Care Provider: Marty Sanchez DO History of Present Illness History of Present Illness Thank you consultation, today had the pleasure of reviewing this very nice 76-year-old female who presents of sons for evaluation of acute kidney injury. Over the last week or so she has had nausea and vomiting and over the last 24 hours numerous episodes of diarrhea. She has been able to take only sips of S prite but really little else over the past few days. In addition to that she has been compliant with her medications that include Lasix, hydrochlorothiazide, losartan. On arrival, hemodynamically she is okay with a blood pressure 111/56. No known history of acute or chronic kidney disease, is never seen a kidney specialist or required hemodialysis. Back in July creatinine 1.1 mg/dL and today 4.5 mg/dL. In addition to this sodium 122, potassium 3.3. CT scan of the abdomen and pelvis demonstrates atrophy of the left kidney but no hydronephrosis. A lung nodule was also demonstrated as well as some changes with liver cirrhosis. No sick contacts. No exposure to any potential source of Salmonella that are obvious (is currently recall on [employer] peanut butter but she has not been exposed). No extremity edema, shortness of breath or other hypervolemic symptoms. She does have a history of heart disease, echocardiogram performed back in July demonstrates ejection fraction of 40% with global hypokinesis. She does have a history of vascular disease, including CVA and known atheros clerosis. Review of Systems Narrative: 12 point review of systems completed per HPI and subjective assessment, this includes Constitutional: Weakness, fatigue Respiratory: No SOB on exertion, comfortable at rest CardioVasc: No chest pain, palpitations Gastrointestinal: No nausea, no vomiting Neurological: No seizures, no AMS Derm: No new rashes, lesions or wounds Immunological: No seasonal and no food allergies Medications/Allergies Home Medications Medication Instructions Recorded Confirmed Last Taken Type atorvastatin 80 mg PO DAILY 07/04/21 10/17/21 07/06/21 21:00 History clopidogrel 75 mg PO DAILY 07/04/21 10/17/21 07/07/21 04:30 History losartan 50 mg PO DAILY 07/04/21 10/17/21 07/07/21 04:30 History metoprolol tartrate 25 mg PO BID 07/04/21 10/17/21 07/07/21 04:30 History furosemide 20 mg tablet 40 mg PO DAILY tab 08/11/21 10/17/21 Unknown History hydrochlorothiazide 12.5 mg tablet 12.5 mg PO DAILY 10/17/21 10/17/21 Unknown History montelukast 10 mg tablet 10 mg PO DAILY PRN 10/17/21 10/17/21 Unknown History polyethylene glycol 3350 17 gram 17 g PO DAILY 10/17/21 10/17/21 Unknown History oral powder packet (Miralax) budesonide-formoterol HFA 160 2 puff INHALATION BID #10.2 g 10/28/21 10/28/21 Unknown Rx mcg-4.5 mcg/actuation aerosol inhaler (Symbicort) tiotropium bromide 2.5 2 puff INHALATION DAILY #4 g 10/28/21 10/28/21 Unknown Rx mcg/actuation mist for inhalation (Spiriva Respimat) acetaminophen 500 mg tablet 500 mg PO Q6H PRN 5 Days #20 tab 12/15/21 Unknown Rx calcium carbonate 1,000 1 tab PO TID PRN 7 Days #21 tab 12/15/21 Unknown Rx mg-simethicone 60 mg chewable tablet (Maalox Advanced) famotidine 20 mg tablet (Pepcid) 20 mg PO BID PRN 10 Days #20 tab 12/15/21 Unknown Rx ondansetron 4 mg disintegrating 4 mg PO TID PRN 4 Days #12 tab 12/15/21 Unknown Rx tablet Allergies Allergy/AdvReac Type Severity Reaction Status Date / Time No Known Allergies Allergy Verified 12/15/21 12:22 PFSH Acute PFSH: Medical History Atherosclerosis of coronary artery COPD (chronic obstructive pulmonary disease) CVA (cerebral vascular accident) Lacunar, 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 History of breast cancer Hypertension Tobacco dependency Surgical History History of appendectomy History of cholecystectomy History of mastectomy Family History Other CAD (coronary artery disease) Social History Smoking and tobacco status: former smoker Quit status (tobacco): has quit using tobacco Year quit tobacco: 2020 Former quit date comment: 2 x 53 years started age 22; quit during hospitalization Alcohol intake: never Vitals/I&O/Wt Last Vital Signs Temp 97.4 F L 12/15/21 12:18 Pulse 66 12/15/21 13:10 Resp 16 12/15/21 13:10 BP 111/56 12/15/21 13:10 Pulse Ox 93 12/15/21 13:10 Weight last 48 hrs Weight 52.617 kg Physical Exam Narrative: Constitutional: Awake, comfortable HEENT: Wet mucosa, no jvp, non icteric Lungs: Bilaterally clear without discernible wheeze, rales in all lung zones CVS: S1 S2, no murmurs Abdo: Soft, BS ok Ext 4: Minimal edema, peripheral perfusion with no cyanosis Neurological: Grossly non-focal Data : 12/15/21 12:38 12/15/21 12:38 A&P Assessment and plan (1) Acute kidney injury superimposed on CKD: Status: Acute Plan 1. Acute kidney injury Consistent with intravascular volume depletion from severe GI losses in the setting of diuretics in the setting of ARB mediated decrease in glomerular pressure. These meds have not been held, continue IV hydration and I will switch intravenous fluid to lactated Ringer's. Likely to have some degree of chronic kidney disease, in July creatinine 1.1 mg/dL and CT scan demonstrates atrophic left kidney which is also likely secondary to underlying renovascular disease. No hydronephrosis No other diagnostic testing is required at this time, continue to monitor renal function closely over the next day or so. If renal function does not recover with the administration of intravenous fluid I will broaden my serological work- up. No indication for renal replacement therapy and I believe this should be avoidable. Dose medication for GFR less than 15 Strict I's and O's Avoid usual nephrotoxic agents 2. Chemistry Hypovolemic hyponatremia secondary to intravascular volume depletion and appropriate none osmotic release of ADH. This should resolve as we give isotonic IV fluid. Hypokalemia secondary to GI losses as well as diuretics. Potassium supplementat ion prescribed Anion gap metabolic acidosis with coexisting metabolic alkalosis. Anion gap of 24.3 however carbon dioxide is normalized due to coexisting acidosis and alkalosis. Will check lactic acidosis, urinalysis for ketones. Also likely secondary to uremia. 3. GI illness Nausea and vomiting for a week and last few days diarrhea. Management per medical team including work-up for this. No exposure to Salmonella that she knows of. 4. Hemodynamics Known history of CHF with ejection fraction 40%. Hemodynamics look stable. ARB and diuretics currently on hold. Thank you for consultation Dale Dallas MD Nephrology [phone] Patient seen and examined via telemedicine, with the assistance of the bedside RN > 25 min spent in evaluation and mgmt of patient Coding Level of Care Code Acute Partnership Development Manager for Gerardo Fwlisa Diagnoses Acute kidney injury superimposed on CKD N17.9; N18.9
[2021-12-15 14:41] LABS: Ketone (Acetest) Serum Negative (Negative)
[2021-12-15 14:48] LABS: Troponin 5 2HR 65.83 ng/L (0-10)
--- NOTE | 2021-12-15 14:51 | ECG_ITS ---
[facility] Test Date: 2021-12-15 Pat Name: Shania Tovar Department: Room: 271 Gender: Female Gum Remover: : 1945 Requested By: Angelo Johnson Order Number: [id number] Reading MD: Gagandeep Dewitt M.D. Measurements Intervals [place] Rate: 81 P: 78 [place]: 204 QRS: 80 QRSD: 85 T: 88 QT: 380 QTc: 442 Interpretive Statements SINUS RHYTHM NONSPECIFIC ST & T-WAVE ABNORMALITY Compared to ECG 12/15/2021 13:19:27 No significant changes Electronically Signed On 12-15-2021 19:43:27 CDT by Gagandeep Dewitt M.D. [id number]
[2021-12-15 14:58] LABS: Urine Creatinine 77 mg/dL (28-217); Urine Random Sodium 37 mmol/L
[2021-12-15 15:00] LABS: Adenovirus Not Detected (NOT DETECT); Chlamydia Pneumoniae Not Detected (NOT DETECT); Coronavirus 229E,HKU1,NL63,OC4 Not Detected (NOT DETECT); Human Metapneumovirus Not Detected (NOT DETECT); Human Rhinovirus/Enterovirus Not Detected (NOT DETECT); Influenza A Not Detected (NOT DETECT); Influenza A H1 Not Detected (NOT DETECT); Influenza A H1-2009 Not Detected (NOT DETECT); Influenza A H3 Not Detected (NOT DETECT); Influenza B Not Detected (NOT DETECT); Mycoplasma Pneumoniae Not Detected (NOT DETECT); Parainfluenza Virus Type 1 Not Detected (NOT DETECT); Parainfluenza Virus Type 2 Not Detected (NOT DETECT); Parainfluenza Virus Type 3 Not Detected (NOT DETECT); Parainfluenza Virus Type 4 Not Detected (NOT DETECT); Respiratory Syncytial Virus A Not Detected (NOT DETECT); Respiratory Syncytial Virus B Not Detected (NOT DETECT); SARS-COV-2 Not Detected (NOT DETECT)
[2021-12-15 15:03] LABS: Creatinine Urine, Random 77 mg/dL (28-217); Microalbum Creatinine Ratio Ur 26 mg/dL (0-20); Microalbumin Random Urine 2 ug/dL (0-20)
[2021-12-15] MEDS: potassium chloride premix 100 ML 25 MEQ IV (15:16)
[2021-12-15 15:32] LABS: Procalcitonin 0.17 ng/mL (0-0.5)
[2021-12-15 15:59] LABS: Add Urine Microscopic? YES; Bilirubin Urine Neg (Negative); Blood Urine 2+ (Negative); Glucose Urine UA Norm (Normal); Ketones Urine Negative (Negative); Leukocyte Esterase Urine Negative (Negative); Nitrate Urine Negative (Negative); Protein Urine Neg (Negative); Urine Appearance Clear (CLEAR); Urine Color Yellow (Yellow); Urobilinogen Urine Norm (Negative); pH Urine 5 (5-7)
[2021-12-15 16:01] LABS: Add Urine Culture? No; Bacteria Urine TRACE /hpf; RBC Urine 0-4 /hpf (0-2); Squamous Epithelial Cell Urine 0-4 /hpf (0-5); WBC Urine 0-4 /hpf (0-5)
[2021-12-15 16:05] LABS: Lactate (Lactic Acid level) 0.9 mmol/L (0.5-2.2)
[2021-12-15] MEDS: heparin 5,000 unit/mL INJ 1 mL 5000 UNIT SUBCUT (17:24)
--- NOTE | 2021-12-15 17:36 | PM.HP ---
Providers/Chief Complaint Admitting Physician: Oskar Montiel MD Primary Care Provider: Marty Sanchez DO Chief Complaint: N/D Cant eat or drink anything History of Present Illness Shania Tovar is a 76 year old female presented to the hospital for generalized weakness. Patient stating that after her stroke her taste has changed, she is experiencing metallic taste for which her p.o. intake has decreased poorly, she decided to come to the hospital because of worsening of her weakness. Patient is stating that today she experienced 2 episodes of loose stools. No recent use of antibiotics. No recent fever or abdominal pain or vomiting. She is living alone, manages her daily activity on her own. She has 2 sons. Because of poor p.o. intake her quality of life is getting affected She is denying chest pain, shortness of breath, strokelike features. She has previous history of CVA. In the ER she was diagnosed with acute on chronic kidney disease, dehydration and electrolyte imbalance started on IV fluids, I requested gentle fluid hydration, CT chest abdomen pelvis which was unremarkable, pulmonary nodule dimensions are pretty much the same, I requested Connell catheter placement for accurate urine output measurement gentle fluid hydration Review of Systems Const: Reports: body aches and fatigue; Denies: fever(s) Eyes: Denies: change in vision ENMT: Denies: throat pain Card: Denies: chest pain Resp: Denies: dyspnea GI: Reports: diarrhea and GI cramping : Denies: flank pain Musc: Reports: muscle cramps Neuro: Denies: headache(s) Psych: Denies: anxiety Endo: Denies: polyuria Wilian/Lymph: Denies: easy bruising All/Imm: Denies: urticaria Medications/Allergies Home Medications Medication Instructions Recorded Confirmed Last Taken Type losartan 50 mg tablet 50 mg PO DAILY 07/04/21 12/15/21 12/15/21 History metoprolol tartrate 25 mg tablet 25 mg PO BID 07/04/21 12/15/21 12/15/21 History furosemide 20 mg tablet 40 mg PO DAILY tab 08/11/21 12/15/21 12/15/21 History polyethylene glycol 3350 17 gram 17 g PO DAILY 10/17/21 12/15/21 Unknown History oral powder packet (Miralax) acetaminophen 500 mg tablet 500 mg PO Q6H PRN 5 Days #20 tab 12/15/21 Unknown Rx atorvastatin 80 mg tablet 80 mg PO DAILY 12/15/21 12/15/21 12/15/21 History calcium carbonate 1,000 1 tab PO TID PRN 7 Days #21 tab 12/15/21 Unknown Rx mg-simethicone 60 mg chewable tablet (Maalox Advanced) clopidogrel 75 mg tablet 75 mg PO DAILY 12/15/21 12/15/21 12/15/21 History famotidine 20 mg tablet (Pepcid) 20 mg PO BID PRN 10 Days #20 tab 12/15/21 Unknown Rx ondansetron 4 mg disintegrating 4 mg PO TID PRN 4 Days #12 tab 12/15/21 Unknown Rx tablet Allergies Allergy/AdvReac Type Severity Reaction Status Date / Time No Known Allergies Allergy Verified 12/15/21 14:50 PFSH Acute PFSH: Medical History (Updated 12/15/21 @ 18:23 by Oskar Montiel MD) Atherosclerosis of coronary artery Benign neoplasm, unspecified site Chronic kidney disease, stage 3 unspecified COPD (chronic obstructive pulmonary disease) CVA (cerebral vascular accident) [place], 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 Gastro-esophageal reflux disease without esophagitis History of breast cancer Hyperkalemia Hypertension Other abnormal glucose Other dysphagia Other gastritis without bleeding Personal history of colonic polyps Solitary pulmonary nodule Tobacco dependency Surgical History History of appendectomy History of cholecystectomy History of mastectomy Family History Other CAD (coronary artery disease) Social History Smoking and tobacco status: former smoker Quit status (tobacco): has quit using tobacco Year quit tobacco: 2020 Former quit date comment: 2 x 53 years started age 22; quit during hospitalization Alcohol intake: never Vitals/I&O/Wt Last Vital Signs Temp 97.8 F 12/15/21 15:54 Pulse 81 12/15/21 16:45 Resp 17 12/15/21 16:45 BP 142/61 12/15/21 15:54 Pulse Ox 96 12/15/21 16:45 Weight last 48 hrs Weight 52.617 kg Weight 52.617 kg Physical Exam Narrative: Very pleasant cooperative female No signs of stroke Muscle mass loss Dehydrated S1, S2 Saturating well on room air Watching television Saturating well on room air No abdominal pain Abdomen is soft Looks clinically dehydrated No signs of uremia Urinary Catheter Management: 3-way Urethral CBI: Cath Placed During This Visit: yes Urinary Catheter Date of Insertion: 12/15/21 Urinary Catheter Time of Insertion: 15:21 Data : 12/15/21 12:38 12/15/21 12:38 A&P Assessment and plan (1) Diarrhea: Status: Acute (2) Decrease in appetite: Status: Acute (3) Fatigue: Status: Acute (4) Acute uremia: Status: Acute (5) Acute kidney injury superimposed on CKD: Status: Acute (6) Hyponatremia: Status: Acute Plan Hypovolemic hyponatremia Secondary to poor p.o. intake She also take Lasix I will give her gentle fluid hydration Check TSH, uric acid Continue IV fluid gentle hydration check sodium level within 4 hours, She is endorsing fatigue and lethargy which could be related to hyponatremia and electrolyte imbalance No strokelike features Acute on chronic kidney disease Hold losartan and Lasix, IV fluid gentle hydration No signs of hydronephrosis No signs of UTI Poor p.o. intake Secondary to metallic taste after CVA 2 episodes of diarrhea, if she gets recurrent episodes check C. difficile I will treat her as chronic hyponatremia Check urine sodium, serum osmolarity Regular diet Pulmonary nodule has not changed significantly in dimensions we will ask her to follow-up outpatient with Dr. Rodriguez She does not have active uremic signs or symptoms No acute indication for dialysis She is full code Regular diet DVT prophylaxis Heparin Attestations Medical Necessity Statement*: Anticipating more than 2 midnights for hypovolemic hyponatremia Time Spent in Patient Care: 40mins Coding Level of Care Code Acute Unit Trust Manager for Maryg Fwd Diagnoses Diarrhea R19.7 Decrease in appetite R63.0 Fatigue R53.83 Acute uremia N19 Acute kidney injury superimposed on CKD N17.9; N18.9 Hyponatremia E87.1
[2021-12-15 19:17] LABS: Thyroid Stimulating Hormone 1.61 uIU/mL (0.27-4.20); Uric Acid 9.7 mg/dL (2.4-5.7)
[2021-12-15] MEDS: metoprolol tartrate 25 mg Tablet PO (20:32)
[2021-12-15] MEDS: sodium chloride 0.9% 1,000 ML 999 ML IV (22:03)
[2021-12-15] MEDS: lactated ringers 1,000 ML 125 ML IV (23:02)
[2021-12-16] VITALS (10 sets, daily range): BP systolic 123–164; BP diastolic 64–81; PULSE 68–82; RESP 17–18; TEMP 36.3–36.8; O2SAT 93–98
[2021-12-16 00:05] LABS: Sodium 129 mmol/L (136-145)
[2021-12-16] MEDS: heparin 5,000 unit/mL INJ 1 mL 5000 UNIT SUBCUT ×2 (05:22→17:40)
[2021-12-16 05:31] LABS: Basophils % 0.6 %; Eosinophils # 0.1 10^3/uL (0.0-0.8); Eosinophils % 1.9 %; Hematocrit 27.7 % (37.0-47.0); Lymphocytes # 1.5 10^3/uL (0.8-4.8); Lymphocytes % 27.7 %; Mean Corpuscular HGB Conc 36.1 g/dL (30.0-36.0); Mean Corpuscular Hemoglobin 28.7 pg (28.0-34.0); Mean Corpuscular Volume 79.6 fl (81-99); Mean Platelet Volume 9.4 fL (7.4-10.4); Monocytes # 0.5 10^3/uL (0.2-0.9); Monocytes % 8.8 %; Neutrophils # 3.17 10^3/uL (1.8-7.7); Neutrophils % 60.4 %; Nucleated Red Blood Cells % 0 %; Platelet Count 182 10^3/cmm (130-400); Red Blood Count 3.48 10^6/uL (4.1-5.3); Red Cell Distribution Width 13.1 % (12.1-15.1); White Blood Count 5.2 10^3/uL (4.0-10.0)
[2021-12-16 05:48] LABS: Anion Gap 17.3 (5-19); C Reactive Protein 14.6 mg/L (0.0-4.9); Calcium 8.7 mg/dL (8.5-10.5); Carbon Dioxide 23 mmol/L (22-29); Chloride 91 mmol/L (98-107); Glucose 84 mg/dL (65-115); Magnesium 1.4 mg/dL (1.7-2.3); Osmolality Calculated 299 mOsm/kg (285-295); Potassium 3.3 mmol/L (3.5-5.1); Sodium 128 mmol/L (136-145)
[2021-12-16 05:53] LABS: Blood Urea Nitrogen 107 mg/dL (8-23)
[2021-12-16] MEDS: lactated ringers 1,000 ML 125 ML IV (06:15)
[2021-12-16] MEDS: ondansetron 2 mg/ML SDV 2 mL 4 MG IVP (06:15)
[2021-12-16] MEDS: loperamide 2 mg Capsule PO (07:17)
[2021-12-16] MEDS: metoprolol tartrate 25 mg Tablet PO ×2 (08:20→19:51)
[2021-12-16 08:47] LABS: Glucose Point of Care 102 mg/dL (70-110)
--- NOTE | 2021-12-16 11:33 | P.PN_ITS ---
Subjective Subjective: This morning patient is endorsing feeling better, adequate urine output Creatinine improving Sodium 128 potassium 3.3 Appreciate nephro recommendations PT evaluation today C. difficile negative, loose stool today as well Vitals/I&O/Wt Last Vital Signs Temp 97.5 F L 12/16/21 11:26 Pulse 72 12/16/21 11:26 Resp 18 12/16/21 11:26 BP 143/67 12/16/21 11:26 Pulse Ox 94 12/16/21 11:26 12/15/21 12/16/21 12/16/21 22:59 06:59 14:59 Intake Total 120 / 120 2002.083 / 2122.083 Output Total 750 / 750 1400 / 2150 650 / 650 Balance -630 / -630 602.083 / -27.917 -650 / -650 Weight last 48 hrs Weight 52.617 kg Weight 52.617 kg Physical Exam Narrative: Patient is very cooperative and pleasant today Awake and alert Endorsing improvement Nonfocal neuro exam Abdomen soft No active emesis S1, S2 Awake and alert Nonfocal neuro exam Saturating well on room air Urinary Catheter Management: 3-way Urethral CBI: Cath Placed During This Visit: yes Reason for Continuing Indwelling Catheter: Other Urinary Catheter Date of Insertion: 12/15/21 Urinary Catheter Time of Insertion: 15:21 Data : 12/16/21 04:58 12/16/21 04:58 Micro: Microbiology 12/16/21 Unknown C.difficile Toxin B Gene (PCR) - Final Stool Routine Collection A&P Assessment and plan (1) Hyponatremia: Status: Acute (2) Diarrhea: Status: Acute (3) Decrease in appetite: Status: Acute (4) Fatigue: Status: Acute (5) Acute kidney injury superimposed on CKD: Status: Acute Plan Hypovolemic hyponatremia Generalized weakness PT evaluation today Decrease LR 100 mL/h Urine and serum osmolality pending Normal TSH Patient is endorsing feeling better Acute on chronic kidney disease Creatinine improving with IV fluid hydration Adequate urine output Holding and nephrotoxic agents Appreciate nephro recommendations Diarrhea No signs of C. difficile Can use Imodium if needed Afebrile Hypokalemia: Repleted Magnesium 1.4: Hypomagnesemia: Repleted Full code Regular diet DVT prophylaxis Heparin Attestations Medical Necessity Statement*: Continue medical management Time Spent in Patient Care: 30mins Coding Level of Care Code Acute E Business Manager for Chg Fwd Diagnoses Hyponatremia E87.1 Diarrhea R19.7 Decrease in appetite R63.0 Fatigue R53.83 Acute kidney injury superimposed on CKD N17.9; N18.9
[2021-12-16] MEDS: potassium chloride ER 20 mEq Tablet 40 MEQ PO (12:22)
--- NOTE | 2021-12-16 13:05 | PM.PN ---
Subjective Subjective: Ms. Tovar is doing much better today. She still having loose, watery stool but it seems to be less today than yesterday. She is starting to tolerate an oral diet. She remains on intravenous fluid. Overall she does feel better as well. Vitals/I&O/Wt Last Vital Signs Temp 97.5 F L 12/16/21 11:26 Pulse 72 12/16/21 11:26 Resp 18 12/16/21 11:26 BP 143/67 12/16/21 11:26 Pulse Ox 94 12/16/21 11:26 12/15/21 12/16/21 12/16/21 22:59 06:59 14:59 Intake Total 120 / 120 2002.083 / 2122.083 Output Total 750 / 750 1400 / 2150 650 / 650 Balance -630 / -630 602.083 / -27.917 -650 / -650 Weight last 48 hrs Weight 52.617 kg Weight 52.617 kg Physical Exam Narrative: Constitutional: Awake, comfortable HEENT: Wet mucosa, no jvp, non icteric Lungs: Bilaterally clear without discernible wheeze, rales in all lung zones CVS: S1 S2, no murmurs Abdo: Soft, BS ok Ext 4: Minimal edema, peripheral perfusion with no cyanosis Neurological: Grossly non-focal Urinary Catheter Management: 3-way Urethral CBI: Cath Placed During This Visit: yes Reason for Continuing Indwelling Catheter: Other Urinary Catheter Date of Insertion: 12/15/21 Urinary Catheter Time of Insertion: 15:21 Data : 12/16/21 04:58 12/16/21 04:58 Micro: Microbiology 12/16/21 Unknown Enteric Pathogens (PCR) - Final Stool Routine Collection C.difficile Toxin B Gene (PCR) - Final A&P Assessment and plan (1) Acute kidney injury superimposed on CKD: Status: Acute Plan 1. Acute kidney injury Consistent with intravascular volume depletion from severe GI losses in the setting of diuretics in the setting of ARB mediated decrease in glomerular pressure. These meds have not been held, continue IV hydration and I will switch intravenous fluid to lactated Ringer's. Doing well today, cont ivf Dose medication for GFR less than 15 Strict I's and O's Avoid usual nephrotoxic agents 2. Chemistry K/Mg being replaced iv 3. GI illness Nausea and vomiting for a week and last few days diarrhea. Management per medical team including work-up for this. No exposure to Salmonella that she knows of. 4. Hemodynamics Known history of CHF with ejection fraction 40%. Hemodynamics look stable. ARB and diuretics currently on hold. Thank you for consultation Dale Dallas MD Nephrology [phone] Patient seen and examined via telemedicine, with the assistance of the bedside RN > 25 min spent in evaluation and mgmt of patient Attestations Medical Necessity Statement*: eval for KAIA Coding Level of Care Code Acute Professional Development Director for g Fwd Diagnoses Acute kidney injury superimposed on CKD N17.9; N18.9
[2021-12-16] MEDS: lactated ringers 1,000 ML 100 ML IV ×2 (18:07→19:51)
[2021-12-17] VITALS (10 sets, daily range): BP systolic 137–189; BP diastolic 65–83; PULSE 66–93; RESP 16–18; TEMP 36.3–36.8; O2SAT 91–97
[2021-12-17] MEDS: heparin 5,000 unit/mL INJ 1 mL 5000 UNIT SUBCUT ×2 (04:34→17:13)
[2021-12-17] MEDS: metoprolol tartrate 25 mg Tablet PO (08:06)
[2021-12-17 09:24] LABS: Basophils % 0.6 %; Eosinophils # 0.1 10^3/uL (0.0-0.8); Eosinophils % 2.1 %; Hematocrit 30.6 % (37.0-47.0); Hemoglobin 10.8 g/dL (11.5-15.3); Mean Corpuscular HGB Conc 35.3 g/dL (30.0-36.0); Mean Corpuscular Volume 82.3 fl (81-99); Monocytes # 0.3 10^3/uL (0.2-0.9); Monocytes % 7.2 %; Neutrophils # 3.21 10^3/uL (1.8-7.7); Neutrophils % 67.9 %; Nucleated Red Blood Cells % 0 %; Platelet Count 187 10^3/cmm (130-400); Red Blood Count 3.72 10^6/uL (4.1-5.3); Red Cell Distribution Width 13.3 % (12.1-15.1); White Blood Count 4.7 10^3/uL (4.0-10.0)
[2021-12-17 09:58] LABS: Anion Gap 16.6 (5-19); Blood Urea Nitrogen 68 mg/dL (8-23); Calcium 9.2 mg/dL (8.5-10.5); Carbon Dioxide 25 mmol/L (22-29); Chloride 93 mmol/L (98-107); Glucose 112 mg/dL (65-115); Magnesium 1.5 mg/dL (1.7-2.3); Osmolality Calculated 293 mOsm/kg (285-295); Potassium 3.6 mmol/L (3.5-5.1); Sodium 131 mmol/L (136-145)
--- NOTE | 2021-12-17 10:37 | PM.PN ---
Subjective Subjective: Patient is endorsing feeling much better and improved Will discontinue Connell catheter today creatinine has improved, potassium and magnesium replenished Patient is agreeable to stay 1 more day for better fluid hydration and electrolyte replenishment Son was updated phone #[phone] Vitals/I&O/Wt Last Vital Signs Temp 97.9 F 12/17/21 07:10 Pulse 89 12/17/21 09:14 Resp 18 12/17/21 09:14 BP 189/66 12/17/21 07:10 Pulse Ox 94 12/17/21 09:14 12/16/21 12/17/21 12/17/21 22:59 06:59 14:59 Intake Total 2073.333 / 2125.333 240 / 240 Output Total 750 / 1400 575 / 1975 Balance 1323.333 / 725.333 -575 / 150.333 240 / 240 Weight last 48 hrs Weight 52.617 kg Weight 52.617 kg Physical Exam Narrative: Very pleasant cooperative female She is working with physical therapist She is very happy with her progress Looks euvolemic No abdominal pain Nonfocal neuro exam Saturating well on room air Working with physical therapist No active chest discomfort No audible stridor or wheezing Urinary Catheter Management: 3-way Urethral CBI: Cath Placed During This Visit: yes Reason for Continuing Indwelling Catheter: Other Urinary Catheter Date of Insertion: 12/15/21 Urinary Catheter Time of Insertion: 15:21 Data : 12/17/21 09:10 12/17/21 09:10 Micro: Microbiology 12/16/21 Unknown Enteric Pathogens (PCR) - Final Stool Routine Collection C.difficile Toxin B Gene (PCR) - Final A&P Assessment and plan (1) Hyponatremia: Status: Acute (2) Diarrhea: Status: Acute (3) Decrease in appetite: Status: Acute (4) Fatigue: Status: Acute (5) Acute kidney injury superimposed on CKD: Status: Acute Plan Severe dehydration related to GI losses/diarrhea Hypokalemia, hypomagnesemia repleted Appreciate nephro recommendations Discontinue Connell catheter I would continue LR at 75 mill per hour today Her sodium gradually improving Patient is endorsing feeling better as well I would like to give her 1 more day for better hydration and electrolyte replenishment I will increase the dose of metoprolol to 50 mg twice daily for her hypertension Updated her son Plan to discharge her tomorrow Acute on chronic kidney disease: Improving with IV fluid hydration I have held her Lasix, losartan Full code Regular diet Attestations Medical Necessity Statement*: Discharge tomorrow Time Spent in Patient Care: 30mins Coding Level of Care Code Acute Manager Corporate for Chg Fwd Diagnoses Hyponatremia E87.1 Diarrhea R19.7 Decrease in appetite R63.0 Fatigue R53.83 Acute kidney injury superimposed on CKD N17.9; N18.9
[2021-12-17] MEDS: potassium chloride ER 20 mEq Tablet PO (10:51)
[2021-12-17] MEDS: amlodipine 5 mg Tablet PO (10:51)
--- NOTE | 2021-12-17 11:07 | P.PN_ITS ---
Subjective Subjective: Ms. Tovar feels much improved today. Much better energy. She is now having formed stool and no longer having any stool incontinence. She is tolerating an oral diet. Chemistry looks much better, good urine output, tolerating IV fluids without development of any edema. Requesting to stay on IV fluid through today. Vitals/I&O/Wt Last Vital Signs Temp 97.9 F 12/17/21 07:10 Pulse 89 12/17/21 09:14 Resp 18 12/17/21 09:14 BP 189/66 12/17/21 07:10 Pulse Ox 94 12/17/21 09:14 12/16/21 12/17/21 12/17/21 22:59 06:59 14:59 Intake Total 2073.333 / 2125.333 240 / 240 Output Total 750 / 1400 575 / 1975 480 / 480 Balance 1323.333 / 725.333 -575 / 150.333 -240 / -240 Weight last 48 hrs Weight 52.617 kg Weight 52.617 kg Physical Exam Narrative: Constitutional: Awake, comfortable HEENT: Wet mucosa, no jvp, non icteric Lungs: Bilaterally clear without discernible wheeze, rales in all lung zones CVS: S1 S2, no murmurs Abdo: Soft, BS ok Ext 4: Minimal edema, peripheral perfusion with no cyanosis Neurological: Grossly non-focal Urinary Catheter Management: 3-way Urethral CBI: Cath Placed During This Visit: yes Reason for Continuing Indwelling Catheter: Other Urinary Catheter Date of Insertion: 12/15/21 Urinary Catheter Time of Insertion: 15:21 Data : 12/17/21 09:10 12/17/21 09:10 Micro: Microbiology 12/16/21 Unknown Enteric Pathogens (PCR) - Final Stool Routine Collection C.difficile Toxin B Gene (PCR) - Final A&P Assessment and plan (1) Acute kidney injury superimposed on CKD: Status: Acute Plan 1. Acute kidney injury Renal function now rapidly improving. Per her request we will keep her on IV fluids throughout today Dose medication for GFR less than 15 Strict I's and O's Avoid usual nephrotoxic agents 2. Chemistry minor non critical aberration 3. GI illness resolving and work up neg 4. Hemodynamics Known history of CHF with ejection fraction 40%. Hemodynamics look stable. ARB and diuretics currently on hold, would cautiously start meds on DC/ have her follow up with out patient team prior to restarting Renal function now recovering nicely, with this in mind we will sign off her care at this time. Thank you for consultation Dale Dallas MD Nephrology [phone] Patient seen and examined via telemedicine, with the assistance of the bedside RN > 25 min spent in evaluation and mgmt of patient Attestations Medical Necessity Statement*: eval for KAIA Coding Level of Care Code Acute Technical Consultant for Chg Fwd Diagnoses Acute kidney injury superimposed on CKD N17.9; N18.9
[2021-12-17 16:53] LABS: Osmolality Urine 318 mOsm/kg (50-1200)
[2021-12-17 16:53] LABS: Osmolality Serum 295 mOsm/kg (278-305)
[2021-12-17] MEDS: lactated ringers 1,000 ML 100 ML IV (17:20)
[2021-12-17] MEDS: metoprolol tartrate 50 mg Tablet PO (20:10)
[2021-12-18] VITALS: BP 155/86; PULSE 81; RESP 17; TEMP 36.7; O2SAT 94
[2021-12-18 03:15] LABS: Blood Urea Nitrogen 49 mg/dL (8-23); Calcium 9.3 mg/dL (8.5-10.5); Carbon Dioxide 26 mmol/L (22-29); Chloride 98 mmol/L (98-107); Glucose 100 mg/dL (65-115); Magnesium 1.6 mg/dL (1.7-2.3); Osmolality Calculated 289 mOsm/kg (285-295); Sodium 133 mmol/L (136-145)
[2021-12-18] MEDS: heparin 5,000 unit/mL INJ 1 mL 5000 UNIT SUBCUT (03:24)
[2021-12-18 03:39] VITALS: PULSE 70
--- NOTE | 2021-12-18 03:53 | PC.NURSE ---
Patient refusing to have another bag of LR. Patient states I'm going home today so there's no point.
[2021-12-18 04:00] VITALS: BP 148/81; PULSE 79; RESP 18; TEMP 36.8; O2SAT 92
[2021-12-18 07:09] VITALS: BP 165/79; PULSE 65; RESP 17; TEMP 36.4; O2SAT 96
[2021-12-18 07:47] VITALS: PULSE 77; RESP 16; O2SAT 96
--- NOTE | 2021-12-18 08:02 | PC.SOCIAL ---
IMM UPDATED IMM dated signed and copy put in chart and copy given to patient
[2021-12-18] MEDS: amlodipine 5 mg Tablet PO (08:07)
[2021-12-18] MEDS: metoprolol tartrate 50 mg Tablet PO (08:07)
--- NOTE | 2021-12-18 09:33 | PM.DCS ---
Discharge Providers Date of Admission: 12/15/21 13:37 Date of Discharge: December 18, 2021 Attending Provider at Admission: Oskar Montiel MD Attending Provider at Discharge: Oskar Montiel MD Primary Care Provider: Marty Sanchez DO Diagnoses at Discharge Discharge Diagnosis (1) Acute kidney injury superimposed on CKD: Status: Acute Reason for Visit Reason for Visit: N/D Cant eat or drink anything Hospital Course Hospital Course Mrs. Guy gordillo cooperative female who was admitted for management of dehydration, acute on chronic kidney disease and muscle weakness. Her symptoms were related to dehydration due to excessive diarrhea. C. difficile ruled out. Stool cultures unremarkable. She was given Imodium which improved her symptoms. Her electrolytes were replenished aggressively. She was given magnesium supplementation at the time of discharge as well. Acute on chronic kidney disease secondary to dehydration which improved with IV fluid hydration, creatinine on admission 4.5, creatinine at discharge 1.5 which is around her baseline. Son was updated. Patient very happy with the progress. She will be discharged home. She did well with physical therapy. CT chest abdomen pelvis unremarkable. Please note her lung nodule is 19 mm in dimension and she is seeing disaster director outpatient. Patient does not want to pursue any histopathological diagnosis while inpatient, she wants to follow-up outpatient with her disaster director first Changes made during hospitalization Discontinue losartan Hold Lasix Antihypertensive regimen Hydralazine, amlodipine and metoprolol Physical Exam Urinary Catheter Management: 3-way Urethral CBI: Cath Placed During This Visit: yes Reason for Continuing Indwelling Catheter: Other Urinary Catheter Date of Insertion: 12/15/21 Urinary Catheter Time of Insertion: 15:21 Discharge Data Studies Completed and Pending Completed Studies During Hospitalization Category Date Time Status CT chest abdomen pelvis [CT chest abd pel wo con] Cat Scan 12/15/21 13:46 Completed Urgent XR chest 1V portable [id number] Urgent Exams 12/15/21 12:50 Completed Radiology Impressions Chest X-Ray 12/15/21 12:50 IMPRESSION: 1. No acute findings. 2. Large right pulmonary nodule corresponding finding on chest CT 10/16/2021. Chest/Abdomen/Pelvis CT 12/15/21 13:46 IMPRESSION: 1. No acute findings. 2. 19 mm right lung nodule. Highly suspicious nodule(s). Consider IMPRESSION: 1. No acute findings. 2. 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 3. Morphologic features of the liver are suggestive of cirrhosis. 4. Incidental findings above. Laboratory Results WBC 4.7 10^3/uL (4.0-10.0) 12/17/21 09:10 RBC 3.72 10^6/uL (4.1-5.3) L 12/17/21 09:10 Hgb 10.8 g/dL (11.5-15.3) L 12/17/21 09:10 Hct 30.6 % (37.0-47.0) L 12/17/21 09:10 MCV 82.3 fl (81-99) 12/17/21 09:10 MCH 29.0 pg (28.0-34.0) 12/17/21 09:10 MCHC 35.3 g/dL (30.0-36.0) 12/17/21 09:10 RDW 13.3 % (12.1-15.1) 12/17/21 09:10 Plt Count 187 10^3/cmm (130-400) 12/17/21 09:10 MPV 9.0 fL (7.4-10.4) 12/17/21 09:10 Neut % (Auto) 67.9 % 12/17/21 09:10 Lymph % (Auto) 22.0 % 12/17/21 09:10 [place] % (Auto) 7.2 % 12/17/21 09:10 Eos % (Auto) 2.1 % 12/17/21 09:10 Baso % (Auto) 0.6 % 12/17/21 09:10 Neut # (Auto) 3.21 10^3/uL (1.8-7.7) 12/17/21 09:10 Lymph # (Auto) 1.0 10^3/uL (0.8-4.8) 12/17/21 09:10 [place] # (Auto) 0.3 10^3/uL (0.2-0.9) 12/17/21 09:10 Eos # (Auto) 0.1 10^3/uL (0.0-0.8) 12/17/21 09:10 Baso # (Auto) 0.0 10^3/uL (0.0-0.1) 12/17/21 09:10 Nucleated RBC % (auto) 0 % 12/17/21 09:10 Nucleated RBCs # 0.0 /100WBC 12/17/21 09:10 Sodium 133 mmol/L (136-145) L 12/18/21 02:04 Potassium 4.0 mmol/L (3.5-5.1) 12/18/21 02:04 Chloride 98 mmol/L (98-107) 12/18/21 02:04 Carbon Dioxide 26 mmol/L (22-29) 12/18/21 02:04 Anion Gap 13.0 (5-19) 12/18/21 02:04 BUN 49 mg/dL (8-23) H 12/18/21 02:04 Creatinine 1.5 mg/dL (0.5-0.9) H 12/18/21 02:04 GFR Calculation Not Reportable 12/18/21 02:04 Glucose 100 mg/dL (65-115) 12/18/21 02:04 POC Glucose 102 mg/dL (70-110) 12/16/21 05:17 Serum Osmolality 295 mOsm/kg (278-305) 12/15/21 14:19 Calculated Osmolality 289 mOsm/kg (285-295) 12/18/21 02:04 Lactate 0.9 mmol/L (0.5-2.2) 12/15/21 15:30 Uric Acid 9.7 mg/dL (2.4-5.7) H 12/15/21 14:19 Calcium 9.3 mg/dL (8.5-10.5) 12/18/21 02:04 Magnesium 1.6 mg/dL (1.7-2.3) L 12/18/21 02:04 Total Bilirubin 0.6 mg/dL (0.15-1.2) 12/15/21 12:38 AST 27 U/L (0-32) 12/15/21 12:38 ALT 19 U/L (0-33) 12/15/21 12:38 Alkaline Phosphatase 100 IU/L (35-105) 12/15/21 12:38 Troponin T Baseline 74 ng/L (0-10) H 12/15/21 12:33 Troponin T 120 Minute 65.83 ng/L (0-10) H 12/15/21 14:19 Delta Troponin T -8.17 ABS# (0-10) L 12/15/21 14:19 C-Reactive Protein 14.6 mg/L (0.0-4.9) H 12/16/21 04:58 NT-Pro-B Natriuret Pep 713 pg/mL (0-450) H 12/15/21 12:38 Total Protein 7.8 g/dL (6.6-8.7) 12/15/21 12:38 Albumin 4.3 g/dL (3.5-5.2) 12/15/21 12:38 Globulin 3.5 g/dL (1.3-4.6) 12/15/21 12:38 Lipase 98 U/L (13-60) H 12/15/21 12:38 Procalcitonin 0.17 ng/mL (0-0.5) 12/15/21 14: TSH 1.61 uIU/mL (0.27-4.20) 12/15/21 14:19 Urine Color Yellow (Yellow) 12/15/21 14:40 Urine Appearance Clear (CLEAR) 12/15/21 14:40 Urine pH 5 (5-7) 12/15/21 14:40 Ur Specific [place] 1.010 (1.005-1.030) 12/15/21 14:40 Urine Protein Neg (Negative) 12/15/21 14:40 Urine Glucose (UA) Norm (Normal) 12/15/21 14:40 Urine Ketones Negative (Negative) 12/15/21 14:40 Urine Blood 2+ (Negative) H 12/15/21 14:40 Urine Nitrate Negative (Negative) 12/15/21 14:40 Urine Bilirubin Neg (Negative) 12/15/21 14:40 Urine Urobilinogen Norm mg/dL (Negative) 12/15/21 14:40 Ur Leukocyte Esterase Negative (Negative) 12/15/21 14:40 Urine RBC 0-4 /hpf (0-2) H 12/15/21 14:40 Urine WBC 0-4 /hpf (0-5) H 12/15/21 14:40 Ur Squamous Epith Cells 0-4 /hpf (0-5) H 12/15/21 14:40 Amorphous Sediment Not Reportable 12/15/21 14:40 Urine Bacteria Trace /hpf (NONE) 12/15/21 14:40 Urine Osmolality 318 mOsm/kg (50-1200) 12/16/21 06:09 Ur Random Microalbumin 2 ug/dL (0-20) 12/15/21 14:40 Ur Random Sodium 37 mmol/L 12/15/21 14:40 Urine Creatinine 77 mg/dL (28-217) 12/15/21 14:40 Urine Creatinine 77 mg/dL (28-217) 12/15/21 14:40 Microalb/Creat Ratio 26 mg/dL (0-20) H 12/15/21 14:40 Nasal Influ A H1 2009 PCR Not detected (NOT DETECT) 12/15/21 13:10 Serum Ketones Negative (Negative) 12/15/21 14:19 Adenovirus (PCR) Not detected (NOT DETECT) 12/15/21 13:10 C. pneumoniae DNA (PCR) Not detected (NOT DETECT) 12/15/21 13:10 Coronavirus 229E (PCR) Not detected (NOT DETECT) 12/15/21 13:10 Human Metapneumovir PCR Not detected (NOT DETECT) 12/15/21 13:10 Influenza A (H1) PCR Not detected (NOT DETECT) 12/15/21 13:10 Influenza A (H3) PCR Not detected (NOT DETECT) 12/15/21 13:10 Influenza Type A (PCR) Not detected (NOT DETECT) 12/15/21 13:10 Influenza Type B (PCR) Not detected (NOT DETECT) 12/15/21 13:10 M. pneumoniae (PCR) Not detected (NOT DETECT) 12/15/21 13:10 Parainfluenza 1 (PCR) Not detected (NOT DETECT) 12/15/21 13:10 Parainfluenza 2 (PCR) Not detected (NOT DETECT) 12/15/21 13:10 Parainfluenza 3 (PCR) Not detected (NOT DETECT) 12/15/21 13:10 Parainfluenza 4 (PCR) Not detected (NOT DETECT) 12/15/21 13:10 RSV Type A (PCR) Not detected (NOT DETECT) 12/15/21 13:10 RSV Type B (PCR) Not detected (NOT DETECT) 12/15/21 13:10 Entero/Rhino (PCR) Not detected (NOT DETECT) 12/15/21 13:10 SARS-CoV-2 (PCR) Not detected (NOT DETECT) 12/15/21 13:10 Vitals Last Vital Signs Temp 97.6 F 12/18/21 07:09 Pulse 77 12/18/21 07:47 Resp 16 12/18/21 07:47 BP 165/79 12/18/21 07:09 Pulse Ox 96 12/18/21 07:47 Discharge Plan Discharge Patient Disposition: Home Condition: Stable Prescriptions: New acetaminophen 500 mg tablet 500 mg PO Q6H PRN (Reason: pain) 5 Days Qty: 20 0RF Pepcid 20 mg tablet 20 mg PO BID PRN (Reason: abdominal pain) 10 Days Qty: 20 0RF ondansetron 4 mg tablet,disintegrating 4 mg PO TID PRN (Reason: nausea and vomiting) 4 Days Qty: 12 0RF Maalox Advanced 1,000-60 mg tablet,chewable 1 tab PO TID PRN (Reason: abdominal pain) 7 Days Qty: 21 0RF amlodipine 10 mg tablet 10 mg PO DAILY Qty: 60 0RF hydralazine 10 mg tablet 10 mg PO BID Qty: 60 0RF magnesium 200 mg tablet 200 mg PO DAILY Qty: 10 0RF Continued polyethylene glycol 3350 [Miralax] 17 gram powder in packet 17 g PO DAILY 0RF atorvastatin 80 mg Tablet 80 mg PO DAILY 0RF clopidogrel 75 mg Tablet 75 mg PO DAILY 0RF Changed metoprolol tartrate 25 mg Tablet 50 mg PO BID Qty: 60 1RF Held furosemide 20 mg tablet 40 mg PO DAILY 0RF Hold Instructions: Resume on 01/01/22. Discontinued losartan 50 mg Tablet 50 mg PO DAILY 0RF Discharge Orders: Discharge Order (Routine); Ordered 12/18/21 Ordered By: Oskar Montiel Referrals: Gwen Bravo PA [Physician] - 12/22/21 9:45 am Datar,Rome Thompson MD [Physician] - 4-7 days Discharge Diet: Cardiac Discharge Activity: Increase activity as tolerated Patient Instructions: Diarrhea - Adult, Famotidine (By mouth), Acetaminophen (By mouth), Hydralazine (By mouth), Amlodipine (By mouth), Ondansetron (By mouth), Antacid, Calcium Containing (By mouth), Magnesium (By mouth), Fatigue, Chronic Kidney Disease (DC), Hyponatremia (DC), Acute Diarrhea (ED), Opioid Safety Activity Restrictions/Additional Instructions: I have discontinued Losrtan NEW BP MEDS AMLodipine once a day metoprolol 50mg twice a day Hydralazine 10mg twice a day Don't take bp meds if bp less than 90mmhg Discharge Attestations Time Spent in Discharge Care*: less than 30 min Quality Metrics Clinical Quality Measures [ No reported AMI, CVA or VTE this stay] Coding Level of Care Code Acute Chg DC note Diagnoses Acute kidney injury superimposed on CKD N17.9; N18.9
--- NOTE | 2021-12-18 11:15 | PC.NURSE ---
Pt already discharged when orders for f/u appt with Dr. Rodriguez was placed. Attempted to call patient and left voicemail about f/u scheduled on december 22 at 9 am.
== END 2021-12-18 11:17 | disposition home or self-care (01) | DRG 683 ==
LOC: ER 13:37 → MEDSURG 15:01
PROVIDERS: Internal Medicine Nephrology; Admitting Provider Internal Medicine; Emergency Provider Emergency Medicine; PCP Internal Medicine; Visit Provider Internal Medicine
DX: N17.9 Acute kidney failure, unspecified (principal); E87.1 Hypo-osmolality and hyponatremia; I13.0 Hypertensive heart and chronic kidney disease with heart failure and stage 1 through stage 4 chronic kidney disease, or unspecified chronic kidney disease; I50.22 Chronic systolic (congestive) heart failure; Z86.73 Personal history of transient ischemic attack (TIA), and cerebral infarction without residual deficits; J44.9 Chronic obstructive pulmonary disease, unspecified; I25.10 Atherosclerotic heart disease of native coronary artery without angina pectoris; Z85.3 Personal history of malignant neoplasm of breast; E11.22 Type 2 diabetes mellitus with diabetic chronic kidney disease; N18.9 Chronic kidney disease, unspecified; Z90.10 Acquired absence of unspecified breast and nipple; Z87.891 Personal history of nicotine dependence; E87.6 Hypokalemia; E86.0 Dehydration; R91.8 Other nonspecific abnormal finding of lung field; E66.9 Obesity, unspecified; Z68.21 Body mass index [BMI] 21.0-21.9, adult; R19.7 Diarrhea, unspecified; E83.42 Hypomagnesemia; Z79.02 Long term (current) use of antithrombotics/antiplatelets
CPT/HCPCS: 36415; 36416; 51702; 71045; 71250; 74176; 80048; 80053; 81001; 82009; 82044; 82570; 82962; 83605; 83690; 83735; 83880; 83930; 83935; 84145; 84295; 84300; 84443; 84484; 84550; 85025; 86140; 87486; 87493; 87506; 87581; 87633; 93005; 96365; 96366; 96372; 97116; 97161; 97530; 99285; J1644; J2405; J3475; J3480; J7030; J7040

== ENCOUNTER → 2021-12-24 12:31 | Outpatient (BNVA) | payer MEDICARE, OTHER, SELFPAY | PROVIDERS: PCP Internal Medicine; Visit Provider Internal Medicine | DX: I11.0 Hypertensive heart disease with heart failure (principal); I50.21 Acute systolic (congestive) heart failure; E11.69 Type 2 diabetes mellitus with other specified complication; Z86.73 Personal history of transient ischemic attack (TIA), and cerebral infarction without residual deficits; F17.200 Nicotine dependence, unspecified, uncomplicated; Z79.84 Long term (current) use of oral hypoglycemic drugs; E66.9 Obesity, unspecified; Z68.22 Body mass index [BMI] 22.0-22.9, adult | CPT/HCPCS: 80048; 83880; 99214 ==

== ENCOUNTER → 2022-01-07 10:43 | Outpatient (BNVA) | payer MEDICARE, OTHER, SELFPAY | PROVIDERS: PCP Internal Medicine; Visit Provider Internal Medicine | DX: I50.9 Heart failure, unspecified (principal); I50.21 Acute systolic (congestive) heart failure; I10 Essential (primary) hypertension; E11.69 Type 2 diabetes mellitus with other specified complication; E66.9 Obesity, unspecified; I63.9 Cerebral infarction, unspecified | CPT/HCPCS: 80048; 83880 ==

== ENCOUNTER 2022-01-16 09:29 | Outpatient (CLI) | payer MEDICARE, OTHER, SELFPAY ==
--- NOTE | 2022-01-16 10:00 | CT_ITS ---
WS: [id number] CT CHEST WITHOUT INTRAVENOUS CONTRAST HISTORY: f/u lung nodule TECHNIQUE: Contiguous 5 mm axial imaging performed on the thorax. Coronal and sagittal reformats are submitted. All CT scans at [facility] use at least one of these dose optimization techniques: automated exposure control; mA and/or kV adjustment per patient size (includes targeted exams where dose is matched to clinical indication); or iterative reconstruction. CONTRAST: None DLP: 564.56 mGy.cm COMPARISON: 12/15/2021, 10/16/2021 Lungs and central airway: RIGHT upper lobe slightly spiculated solid pulmonary nodule measures slight ly greater in size on today's examination. Measurements are 19 x 17 mm as compared to 18 x 15 mm on t he prior study. Visually the mass appears more solid. The margins are slightly more spiculated. No ad ditional nodule. There is mild tethering and tenting along the minor fissure. Pleura: Normal. No pleural effusion. Heart and pericardium: Mild cardiac enlargement. No pericardial effusion. Mediastinum and zaid: No mediastinum or hilar adenopathy. Vessels: Moderate atherosclerotic plaque within the aorta. Continued dilatation of the ascending aort a to 3.9 cm. Pulmonary artery is also slightly prominent. Heavy calcification in the [place] coronary arteries. Chest wall and lower neck: Prior LEFT mastectomy. Upper abdomen: Surface of the liver is lobulated suggesting cirrhosis. Prior cholecystectomy. Mild at rophy upper pole of the LEFT kidney. Heavy calcification noted with throughout the suprarenal aorta a nd splenic artery. Enlarging celiac axis lymph nodes measuring up to 11 mm. There are several lymph n odes now present surrounding the celiac axis which have increased in size since 12/15/2021. No adrenal mass. Osseous structures: Mild osteopenia. No bone destruction. CT/CT chest wo con [id number] IMPRESSION: 1. Mild increase in size of the spiculated solid mass RIGHT upper lobe now corey suring 19 x 17 mm as compared to 18 x 15 on 12/15/2021. Minimal increase in size but the mass appears more solid in its content. 2. Increase in size of the several lymph nodes at the celiac axis. Recommend e valuation for metastatic disease. 3. Stable mild dilatation of the ascending thoracic aorta 3.9 cm. 4. Atrophy upper pole LEFT kidney. 5. Cirrhosis.
== END 2022-01-16 09:30 | disposition home or self-care (01) ==
LOC: RAD 09:29
PROVIDERS: PCP Internal Medicine; Visit Provider Internal Medicine Pulmonary Disease
DX: R91.1 Solitary pulmonary nodule (principal); I77.810 Thoracic aortic ectasia; N26.1 Atrophy of kidney (terminal); K74.60 Unspecified cirrhosis of liver
CPT/HCPCS: 71250

== ENCOUNTER → 2022-01-30 09:50 | Outpatient (BNVA) | payer MEDICARE, OTHER, SELFPAY | PROVIDERS: PCP Internal Medicine; Visit Provider Internal Medicine Pulmonary Disease | DX: R06.02 Shortness of breath (principal); I10 Essential (primary) hypertension; I50.21 Acute systolic (congestive) heart failure; J44.9 Chronic obstructive pulmonary disease, unspecified; R68.89 Other general symptoms and signs; R91.1 Solitary pulmonary nodule; Z71.89 Other specified counseling; Z87.891 Personal history of nicotine dependence | CPT/HCPCS: 99214 ==

== ENCOUNTER 2022-02-04 06:53 | Emergency (ER) | payer MEDICARE, OTHER, SELFPAY ==
[2022-02-04] VITALS (7 sets, daily range): BP systolic 117–140; BP diastolic 46–84; PULSE 64–72; RESP 18; TEMP 36.5; O2SAT 92–96; BMI 19.8
--- NOTE | 2022-02-04 07:20 | CT_ITS ---
WS: [id number] CT HEAD NONCONTRAST HISTORY: fall TECHNIQUE: Contiguous axial imaging performed through the brain in 2.5 mm imaging. Bone and soft tiss ue windows. Sagittal and coronal reformats reviewed. All CT scans at [facility] use at least one of these dose optimization techniques: automated exposure control; mA and/or kV adjustment per pa tient size (includes targeted exams where dose is matched to clinical indication); or iterative recon struction. DLP: 1036.68 mGy.cm COMPARISON: 05/29/2021 No acute intracranial hemorrhage, midline shift or mass effect. Mild atrophy and moderate small vessel ischemic disease. RIGHT basal ganglia chronic lacunar infarct. Small lacunar infarct in the RIGHT graham radiata. There is now an infarct in the posterior limb of the internal capsule which appears remote also. No acute sulcal effacement. Ventricles: Mild ventriculomegaly on the basis of atrophy. Paranasal sinuses: As visualized are clear. Mastoid air cells: Well pneumatized. Calvarium and scalp: Skull is intact with no soft tissue edema or swelling. CT/CT head wo con* [id number] IMPRESSION: 1. No acute intracranial hemorrhage or edema. 2. Small, chronic appearing lacunar infarcts in the RIGHT basal ganglia and co mita radiata have mildly progressed since 05/29/2021. No acute infarct. 3. Moderate small vessel ischemic disease.
--- NOTE | 2022-02-04 07:21 | ECG_ITS ---
[facility] Test Date: 2022-02-04 Pat Name: Shania Tovar Department: Room: Gender: Female Lighter: : 1945 Requested By: Carlos Powell Order Number: [id number] Lory MD: Gagandeep Dewitt M.D. Measurements Intervals [place] Rate: 66 P: 78 NM: 150 QRS: 73 QRSD: 94 T: 81 QT: 445 QTc: 467 Interpretive Statements SINUS RHYTHM MINIMAL ST DEPRESSION [0.025+ mV ST DEPRESSION] Compared to ECG 12/15/2021 15:01:52 ST (T wave) deviation now present T-wave abnormality no longer present Electronically Signed On 02-04-2022 16:30:24 CDT by Gagandeep Dewitt M.D. [email or web address]
[2022-02-04 08:33] LABS: Basophils % 0.3 %; Eosinophils # 0.1 10^3/uL (0.0-0.8); Hematocrit 35.4 % (37.0-47.0); Hemoglobin 11.7 g/dL (11.5-15.3); Lymphocytes # 0.8 10^3/uL (0.8-4.8); Mean Corpuscular HGB Conc 33.1 g/dL (30.0-36.0); Mean Corpuscular Hemoglobin 27.7 pg (28.0-34.0); Mean Corpuscular Volume 83.7 fl (81-99); Mean Platelet Volume 9.8 fL (7.4-10.4); Monocytes # 0.4 10^3/uL (0.2-0.9); Neutrophils # 7.31 10^3/uL (1.8-7.7); Neutrophils % 84.2 %; Nucleated Red Blood Cells % 0 %; Platelet Count 378 10^3/cmm (130-400); Red Blood Count 4.23 10^6/uL (4.1-5.3); Red Cell Distribution Width 13.9 % (12.1-15.1); White Blood Count 8.7 10^3/uL (4.0-10.0)
--- NOTE | 2022-02-04 09:09 | ED_ITS ---
HPI - Fall General: Chief Complaint: Fall Stated Complaint: Fell, Dizzy, hit head Time Seen by Provider: 02/04/22 07:20 Source: patient Mode of arrival: ambulatory Limitations: no limitations History of Present Illness: 76-year-old female presents to the emergency room with complaints of a fall this morning she got up to go to the bathroom as she began to walk to the bathroom she got lightheaded and dizzy fell and hit her head on the right side of her head she is unsure if she had a loss of conscious not she does not think so. She still feels rather weak and dizzy. She denies any chest pain. She does have a history of COPD and diabetes mellitus she is a smoker she also has a history of previous CVA and congestive heart failure as well as lung nodules. Family member at the bedside reports recent weight loss. Patient is otherwise awake alert and oriented. MD complaint: fall Onset (ago): minute(s) Fall from: standing Fall witnessed: no Place fall occurred: home Loss of consciousness: Unsure Prolonged down time: no Symptoms prior to fall: lightheadedness and dizziness Context: other (Immediately after standing) Location of injury: head Quality: aching Associated symptoms-after fall: Reports lightheadedness; Denies abdominal pain, chest pain, confusion, difficulty walking, headache(s), hematuria, neck pain, numbness, short of breath, vertigo or weakness Review of Systems Const: Denies: fever(s), chills, body aches, change in appetite, fatigue or malaise ENMT: Denies: throat pain, ear or mastoid pain, nasal discharge or nasal congestion Card: Reports: lightheadedness; Denies: chest pain Resp: Denies: dyspnea, productive cough or non-productive cough GI: Denies: abdominal pain, nausea or vomiting : Denies: flank pain, difficulty voiding, dysuria, urinary frequency, urinary urgency or hematuria Musc: Denies: neck pain Skin/Breast: Denies: rash or pruritus Neuro: Denies: headache(s), difficulty walking, vertigo or confusion PFS ED PFSH: Medical History Atherosclerosis of coronary artery Benign neoplasm, unspecified site Chronic kidney disease, stage 3 unspecified COPD (chronic obstructive pulmonary disease) CVA (cerebral vascular accident) Lacunar, 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 Gastro-esophageal reflux disease without esophagitis History of breast cancer Hyperkalemia Hypertension Other abnormal glucose Other dysphagia Other gastritis without bleeding Personal history of colonic polyps Solitary pulmonary nodule Tobacco dependency Surgical History History of appendectomy History of cholecystectomy History of mastectomy Family History Other CAD (coronary artery disease) Social History Smoking and tobacco status: former smoker Quit status (tobacco): has quit using tobacco Year quit tobacco: 2021 Former quit date comment: 2 x 53 years started age 22; quit during hospitalization Alcohol intake: never Physical Exam Const: GENERAL APPEARANCE: cooperative and comfortable ORIENTATION/CONSCIOUSNESS: Yes awake, Yes oriented to person, Yes oriented to place and Yes oriented to time HENMT: COMMON NORMALS: normocephalic, atraumatic and hearing grossly normal bilaterally HEAD & SCALP: normocephalic and atraumatic Eye: COMMON NORMALS: Equal, round and reactive pupils present, EOMs intact bilaterally, conjunctivae normal and no scleral icterus CONJUNCTIVA: Yes conjunctivae normal PUPIL: Yes Equal, round and reactive pupils present Neck/C-Spine: COMMON NORMALS: no JVD Resp: COMMON NORMALS: normal respiratory effort, No retractions, No use of accessory muscles and clear to auscultation bilaterally AUSCULTATION: clear to auscultation bilaterally Cardio: COMMON NORMALS: no JVD, regular rate, regular rhythm and No murmurs present (Cardio) RATE: regular rate RHYTHM: regular rhythm GI: COMMON NORMALS: Soft to palpation and No hepatosplenomegaly present AUSCULTATION: Yes normoactive bowel sounds PALPATION: Yes Soft to palpation, No Tenderness to palpation present (GI), No Guarding due to palpation present (GI) and Yes No hepatosplenomegaly present Extremity: COMMON NORMALS: normal to inspection, capillary refill normal, no clubbing, cyanosis or edema, no calf tenderness and no pedal edema Neuro: SENSORIUM/ORIENTATION: Yes oriented to person, Yes oriented to place and Yes oriented to time Skin: COMMON NORMALS: no rashes or lesions noted GENERAL SKIN EXAM: no rashes or lesions noted Course Vital Signs: Vital signs: Vital Signs Temperature 97.7 F 02/04/22 07:04 Pulse Rate 72 02/04/22 11:00 Respiratory Rate 18 02/04/22 07:04 Blood Pressure 126/46 02/04/22 11:00 Pulse Oximetry 93 02/04/22 11:00 MDM - Fall Medical Decision Making Labs and imaging reviewed hypokalemia treated we will discharge patient home with potassium supplement. Asked her to have labs rechecked in a few days with her primary care doctor recheck her sodium as well. Medical Records I reviewed the patient's medical records. Lab Data I reviewed the patient's lab results. : 02/04/22 08:18 02/04/22 09:[address] 02/04/22 07:20 IMPRESSION: 1. No acute intracranial hemorrhage or edema. 2. Small, chronic appearing lacunar infarcts in the RIGHT basal ganglia and graham radiata have mildly progressed since 05/29/2021. No acute infarct. 3. Moderate small vessel ischemic disease. Cervical Spine CT 02/04/22 09:15 IMPRESSION: 1. No evidence of acute fracture or dislocation. 2. Disc osteophyte complexes with moderate central canal stenosis C5-C6 and mild central canal stenosis C6-C7. Laboratory Results WBC 8.7 10^3/uL (4.0-10.0) 02/04/22 08:18 RBC 4.23 10^6/uL (4.1-5.3) 02/04/22 08:18 Hgb 11.7 g/dL (11.5-15.3) 02/04/22 08:18 Hct 35.4 % (37.0-47.0) L 02/04/22 08:18 MCV 83.7 fl (81-99) 02/04/22 08:18 MCH 27.7 pg (28.0-34.0) L 02/04/22 08:18 MCHC 33.1 g/dL (30.0-36.0) 02/04/22 08:18 RDW 13.9 % (12.1-15.1) 02/04/22 08:18 Plt Count 378 10^3/cmm (130-400) 02/04/22 08:18 MPV 9.8 fL (7.4-10.4) 02/04/22 08:18 Neut % (Auto) 84.2 % 02/04/22 08:18 Lymph % (Auto) 9.0 % 02/04/22 08:18 [place] % (Auto) 5.0 % 02/04/22 08:18 Eos % (Auto) 1.0 % 02/04/22 08:18 Baso % (Auto) 0.3 % 02/04/22 08:18 Neut # (Auto) 7.31 10^3/uL (1.8-7.7) 02/04/22 08:18 Lymph # (Auto) 0.8 10^3/uL (0.8-4.8) 02/04/22 08:18 [place] # (Auto) 0.4 10^3/uL (0.2-0.9) 02/04/22 08:18 Eos # (Auto) 0.1 10^3/uL (0.0-0.8) 02/04/22 08:18 Baso # (Auto) 0.0 10^3/uL (0.0-0.1) 02/04/22 08:18 Nucleated RBC % (auto) 0 % 02/04/22 08:18 Nucleated RBCs # 0.0 /100WBC 02/04/22 08:18 Sodium 124 mmol/L (136-145) L 02/04/22 09:47 Potassium 2.9 mmol/L (3.5-5.1) L 02/04/22 09:47 Chloride 80 mmol/L (98-107) L 02/04/22 09:47 Carbon Dioxide 29 mmol/L (22-29) 02/04/22 09:47 Anion Gap 17.9 (5-19) 02/04/22 09:47 BUN 38 mg/dL (8-23) H 02/04/22 09:47 Creatinine 1.2 mg/dL (0.5-0.9) H 02/04/22 09:47 GFR Calculation Not Reportable 02/04/22 09:47 Glucose 121 mg/dL (65-115) H 02/04/22 09:47 Calculated Osmolality 268 mOsm/kg (285-295) L 02/04/22 09:47 Calcium 9.0 mg/dL (8.5-10.5) 02/04/22 09:47 Total Bilirubin 0.8 mg/dL (0.15-1.2) 02/04/22 09:47 AST 29 U/L (0-32) 02/04/22 09:47 ALT 29 U/L (0-33) 02/04/22 09:47 Alkaline Phosphatase 194 IU/L (35-105) H 02/04/22 09:47 Troponin T Baseline 53 ng/L (0-10) H 02/04/22 08:18 Troponin T 120 Minute 45.47 ng/L (0-10) H 02/04/22 09:47 Delta Troponin T -7.53 ABS# (0-10) L 02/04/22 09:47 Total Protein 6.9 g/dL (6.6-8.7) 02/04/22 09:47 Albumin 3.3 g/dL (3.5-5.2) L 02/04/22 09:47 Globulin 3.6 g/dL (1.3-4.6) 02/04/22 09:47 Discharge Plan Discharge Patient Disposition: Home Clinical Impression: Fall, Hypokalemia Condition: Stable Prescriptions: No Action acetaminophen 500 mg capsule 500 mg PO Q6H PRN (Reason: Pain) 0RF megestrol 400 mg/10 mL (10 mL) suspension 400 mg PO DAILY Qty: 400 3RF hydralazine 10 mg tablet 10 mg PO BID Qty: 60 6RF amlodipine 10 mg tablet 10 mg PO DAILY Qty: 60 0RF Aspir-81 81 mg Tablet,Delayed Release (Dr/Ec) 81 mg PO DAILY PRN (Reason: Pain) 0RF metoprolol tartrate 50 mg tablet 50 mg PO BID 0RF mirtazapine 7.5 mg tablet 7.5 mg PO BEDTIME 0RF Discharge Orders: Discharge ED (Routine); Ordered 02/04/22 Ordered By: Carlos Harris Referrals: Marty Sanchez DO [Primary Care Provider] - Discharge Diet: Usual diet Discharge Activity: Increase activity as tolerated Patient Instructions: Opioid Safety Activity Restrictions/Additional Instructions: Labs and imaging were unremarkable with the exception of low potassium. You are given potassium supplement here and a prescription for 20 mEq 1 pill twice a day for 5 days follow-up with your primary care doctor to recheck within the next week. Coding Level of Care Code ED Account Lia[facility] Fwd Exam Comprehensive
[2022-02-04 09:10] LABS: Troponin(5th) Baseline 53 ng/L (0-10)
--- NOTE | 2022-02-04 09:15 | CT_ITS ---
WS: [id number] CT CERVICAL TRAUMA TECHNIQUE: Noncontrast CT of the cervical spine with coronal and sagittal reformatted images. CLINICAL INFORMATION: fall COMPARISON: None. DLP: 272.[address] scans at [facility] use at least one of these dose optimization techniques: automated e xposure control; mA and/or kV adjustment per patient size (includes targeted exams where dose is matc hed to clinical indication); or iterative reconstruction. FINDINGS: Straightening of the normal cervical lordosis. Moderate spondylitic changes. Disc osteophyte complexe s worse at C3-C4 C5-C6 and C6-C7. LEFT pericentral disc osteophyte complex C5-C6 with moderate centra l canal stenosis and slight indentation on cervical cord. Mild central canal stenosis C6-C7. Normal c raniocervical junction. Normal C1-C2 articulation. Dens is normal in appearance. Normal occipital con dyles. Normal prevertebral soft tissues. Mastoids air cells are well aerated. CT/CT cervical spin wo con* [id number] IMPRESSION: 1. No evidence of acute fracture or dislocation. 2. Disc osteophyte complexes with moderate central canal stenosis C5-C6 and mi ld central canal stenosis C6-C7.
--- NOTE | 2022-02-04 09:21 | ECG_ITS ---
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 Measurements Intervals [place] Rate: 72 P: 67 MI: 157 QRS: 47 QRSD: 96 T: 35 QT: 421 QTc: 461 Interpretive Statements SINUS RHYTHM WITH OCCASIONAL VENTRICULAR PREMATURE COMPLEXES POSSIBLE LEFT ATRIAL ENLARGEMENT [-0.1mV P WAVE IN V1/V2] NONSPECIFIC ST & T-WAVE ABNORMALITY Compared to ECG 02/04/2022 07:12:49 Ventricular premature complex(es) now present T-wave abnormality now present ST (T wave) deviation no longer present Electronically Signed On 02-04-2022 16:33:36 CDT by Gagandeep Dewitt M.D. [id number]
--- NOTE | 2022-02-04 10:11 | PC.PHAR ---
PTS SON VERIFIED PTS MEDICATIONS-PTS SON SHERWIN STATES THE PT DCED MOST OF HER MEDS LAST WEEK-SHERWIN STATES THE PT IS ONLY TAKING HER 3 BP MEDS ENTERED ALONG WITH THE REMERON 7.5MG HS, ASPIRIN PRN AND TYLENOL PRN-SHERWIN STATES THE PT HASNT GOTTEN THE MEGESTROL FILLED YET-PT HAD LOSARTAN 50MG DAILY FILLED 12/31/21 90D/S-HCTZ 12.5MG DAILY FILLED 01/01/22 90D/S-LASIX 20MG DAILY FILLED 12/26/21 90D/S-KCL 20MEQ-LIPITOR 80MG DAILY FILLED 12/10/21 90D/S AND PLAVIX 75MG DAILY FILLED 12/10/21 90D/S SHERWIN STATE PT NO LONGER TAKING STATES THE PT SAW LAST WEEK STATES THE TALKED HER INTO CONTINUING THE 3 BP MEDS AND REMERON
[2022-02-04 10:37] LABS: Troponin 5 2HR 45.47 ng/L (0-10)
[2022-02-04 10:38] LABS: Troponin 5 2HR Delta -7.53 ABS# (0-10)
[2022-02-04 10:44] LABS: Alanine Aminotransferase 29 U/L (0-33); Albumin Level 3.3 g/dL (3.5-5.2); Alkaline Phosphatase 194 IU/L (35-105); Anion Gap 17.9 (5-19); Aspartate Amino Transferase 29 U/L (0-32); Blood Urea Nitrogen 38 mg/dL (8-23); Carbon Dioxide 29 mmol/L (22-29); Chloride 80 mmol/L (98-107); Globulin 3.6 g/dL (1.3-4.6); Glucose 121 mg/dL (65-115); Osmolality Calculated 268 mOsm/kg (285-295); Sodium 124 mmol/L (136-145); Total Bilirubin 0.8 mg/dL (0.15-1.2); Total Protein 6.9 g/dL (6.6-8.7)
[2022-02-04 10:46] LABS: Potassium 2.9 mmol/L (3.5-5.1)
[2022-02-04] MEDS: sodium chloride 0.9% 1,000 ML 999 ML IV (11:00)
[2022-02-04] MEDS: potassium chloride oral liq 20 mEq/15 mL UDC 40 MEQ PO (11:16)
== END 2022-02-04 12:27 | disposition home or self-care (01) ==
PROVIDERS: Emergency Provider Family Medicine; PCP Internal Medicine
DX: E87.6 Hypokalemia (principal); Z79.82 Long term (current) use of aspirin; I25.10 Atherosclerotic heart disease of native coronary artery without angina pectoris; E11.22 Type 2 diabetes mellitus with diabetic chronic kidney disease; I12.9 Hypertensive chronic kidney disease with stage 1 through stage 4 chronic kidney disease, or unspecified chronic kidney disease; N18.30 Chronic kidney disease, stage 3 unspecified; J44.9 Chronic obstructive pulmonary disease, unspecified; Z86.73 Personal history of transient ischemic attack (TIA), and cerebral infarction without residual deficits; Z85.3 Personal history of malignant neoplasm of breast; Z87.891 Personal history of nicotine dependence
CPT/HCPCS: 70450; 72125; 80053; 84484; 85025; 93005; 99285; J7030